=== PATIENT | male | born 1945 | race Caucasian/White ===

== ENCOUNTER → 2017-06-03 | Day surgery (SDC) | payer MEDICARE ==
[~2017-06-03] VITALS: Ht 170.2 cm; Wt 71.3 kg
[~2017-06-03] MED LIST: ACETAMINOPHEN 1000 MG/100 ML 100 ML IV ONE; ACETAMINOPHEN/HYDROcodone 325 MG/5 MG TAB PO PRN; ASPI-516 CHEW; ATOR20TA15 PO; BACITRACIN TOP OINT 15 GM TUBE ONE; BUPIVACAINE/EPINEPHRINE 0.25% 50 ML VIAL ONE; CHLORHEXIDINE GLUCONATE 2 % 1 PACK (2 CLOTHS) TOPICAL PRN; DO NOT ADM ANY ANTICOAGULANT DRUGS PRN; FISHCAP4 PO; HYDROmorphone HCL PF 1 MG/ML VIAL IV PUSH PRN; HYZA100T6 PO; KETOROLAC TROMETHAMINE 30 MG/ML (IVP) VIAL IVP PRN; LACTATED RINGER'S 1000 ML INJ 1,000 ML IV SCH; LACTATED RINGER'S 1000 ML IV PRN; MELO7.5T27 PO; METOPROLOL TARTRATE 25 MG TAB PO PRN; MIDAZOLAM HCL 2 MG/2 ML VIAL ONE; MORPHINE SULFATE 8 MG/ML INJ IV PUSH PRN; NALOXONE HCL 0.4 MG/ML AMP IV PUSH PRN; ONDANSETRON HCL 4 MG/2 ML VIAL IV PUSH PRN; OXYC1CAP PO; PCA - TOTAL MG MORPHINE DELIVERED PER SHIFT SCH; POVIDONE IODINE 5% (ANTISEPSIS KIT) 4 APPLICATIONS EACH NARE PRN; Post-op Orders (for Pharmacy) XX ONE; SODIUM CHLORID 0.9% 500 ML IV PRN; TYLETAB36 PO; VITA100T65 PO; ZOSTINJ SQ; [UNRECOGNIZED DRUG - CODE] PO; ceFAZolin 2 GM PREMIX 50 ML IV SCH; diphenhydrAMINE HCL 25 MG CAP PO PRN
[2017-06-03 13:14] LABS: AUTOMATED NEUTROPHIL # 5.1 TH/MM3 (1.8-7.7); BASOPHIL % 0.5 % (0.0-2.0); EOSINOPHIL # 0.1 TH/MM3 (0-0.4); EOSINOPHIL % 2.1 % (0.0-4.0); HEMATOCRIT 42.3 % (39.0-51.0); HEMOGLOBIN 14.7 GM/DL (13.0-17.0); LYMPHOCYTE # 1.3 TH/MM3 (1.0-4.8); MEAN CELL VOLUME 97.9 FL (80.0-100.0); MEAN CORPUSCULAR HGB CONC 34.7 % (32.0-36.0); MEAN PLATELET VOLUME 8.1 FL (7.0-11.0); MONO % 5.6 % (0.0-8.0); MONOCYTE # 0.4 TH/MM3 (0-0.9); NEUT % 72.8 % (16.0-70.0); PLATELET COUNT 215 TH/MM3 (150-450); RED BLOOD COUNT 4.32 MIL/MM3 (4.50-5.90); RED CELL DISTRIBUTION WIDTH 12.7 % (11.6-17.2); WHITE BLOOD COUNT 7.1 TH/MM3 (4.0-11.0)
[2017-06-03 13:28] LABS: ALT (GPT) 21 U/L (12-78)
[2017-06-03 13:31] LABS: ALKALINE PHOSPHATASE 72 U/L (45-117); TOTAL BILIRUBIN ADULT 0.4 MG/DL (0.2-1.0); TOTAL PROTEIN 6.4 GM/DL (6.4-8.2)
[2017-06-03 13:34] LABS: ALBUMIN 3.2 GM/DL (3.4-5.0); BLOOD UREA NITROGEN 16 MG/DL (7-18); CALCIUM 9.1 MG/DL (8.5-10.1); CHLORIDE 108 MEQ/L (98-107); CREATININE 0.62 MG/DL (0.60-1.30); GLOMERULAR FILTRATION RATE 128 ML/MIN (>89); GLUCOSE,RANDOM 92 MG/DL (74-106); SODIUM (NA) 140 MEQ/L (136-145)
[2017-06-03 13:38] LABS: AST (GOT) 27 U/L (15-37)
--- NOTE | 2017-06-03 14:00 | EKG ---
Date Performed: 06/03/2017 Time Performed: 11:58:04 PTAGE: 72 years EKG: Sinus rhythm NORMAL ECG NO PREVIOUS TRACING DOCTOR: Carlos Hamilton Interpretating Date/Time 06/03/2017 13:58:58
[2017-06-03 17:15] VITALS: BP 125/82; PULSE 75; RESP 18; TEMP 99.1; O2SAT 94
--- NOTE | 2017-06-04 09:10 | MP ---
cc: NATALY JIMENEZ M.D. DATE OF SURGERY 06/03/2017 PREOPERATIVE DIAGNOSES 1. Intermittent partial small-bowel obstruction with chronic right lower quadrant abdominal pain. 2. Umbilical hernia. 3. Status post laparoscopic appendectomy for perforated appendicitis. POSTOPERATIVE DIAGNOSES 1. Intermittent partial small-bowel obstruction with chronic right lower quadrant abdominal pain. 2. Status post laparoscopic appendectomy for perforated appendicitis. 3. Band-like adhesion right lower quadrant. 4. Incarcerated umbilical hernia with omental fat. PROCEDURE PERFORMED 1. Diagnostic laparoscopy. 2. Laparoscopic lysis of adhesion. 3. Primary umbilical hernia repair. SURGEON Nataly Jimenez MD ANESTHESIA General endotracheal. COMPLICATIONS None. INDICATION FOR PROCEDURE Mr. Palacios is a very pleasant 72-year-old gentleman who has had episodes of intermittent partial small-bowel obstruction. This was diagnosed by imaging and symptoms. He was seen and evaluated by his primary care physician. The patient reported intermittent umbilical and right lower quadrant abdominal pain. Because of his persistent and worsening symptoms, he was referred for surgical evaluation. The patient was seen and evaluated in the office. He was offered diagnostic laparoscopy, possible exploratory laparotomy to evaluate for adhesions in the right lower quadrant. The patient's surgical history is significant for undergoing a laparoscopic appendectomy for a perforated appendicitis many years ago at another facility. The patient was agreeable to proceed. All risks and benefits were reviewed with him in detail. DETAILS The patient was identified, brought to the operating room and placed supine on the operating room table. After adequate endotracheal anesthesia was achieved, the abdomen was prepped and draped in standard surgical fashion. Infraumbilical space was anesthetized with 0.25% Marcaine. Infraumbilical incision was made. Dissection was carried down in the subcutaneous tissue to the anterior abdominal wall fascia. Umbilical stalk and hernia were then carefully dissected out. Umbilical hernia sac was then opened a finger was placed in the peritoneal cavity. There were noted to be significant omental adhesions in the area of the umbilicus. Therefore a blunt 10-mm trocar was inserted. We did have some visualization of the abdominal wall in the left lower quadrant. Therefore we elected to place a 5-mm port in the left lower quadrant to obtain better visualization. 0.25% Marcaine was injected in the left lower quadrant. A 5-mm port was inserted in the left lower quadrant under direct vision using 0-degree laparoscopic in the umbilicus. Next, a second 5-mm trocar was placed in the lower midline, again under direct vision after anesthetizing the skin and subcutaneous tissue with 0.25% Marcaine. Once we did this, we removed the umbilical 10-mm trocar. Using finger dissection as well as blunt graspers, we pulled all the omentum out the umbilical defect. There were no significant bleeding points noted when we did this. Once the fascia was cleaned off circumferentially and the adhesions were completely cleared off, a 10-mm blunt port was then reinserted. A 10-mm, 30-degree camera was then inserted and attention was directed to the right lower quadrant. In the right lower quadrant there was noted to be a band-like adhesion going down from the abdominal wall, midline over to the right lower quadrant. This adhesion was photographed and then taken down with sharp dissection. Once we did this, attention was directed to the right lower quadrant where the cecum was identified. The cecal base was identified and eric from the previous laparoscopic appendectomy were photographed. The terminal ileum was then grasped. The terminal ileum was then followed in a retrograde manner. The ileum and jejunum were then run completely from the terminal ileum all the way to the ligament of Treitz using a [id number] technique with blunt bowel graspers. There were no interloop adhesions and no gross abnormalities. The only slight abnormality we did see was a thickening in the mid-jejunum which could have been a peristaltic wave. There was no mass noted and this was directly palpated. We then ran the bowel in an antegrade fashion from the ligament Treitz back down to the ileocecal valve and again no abnormalities were noted. Specifically there was no evidence of a Meckel's diverticulum or any interloop adhesions. Once we felt comfortable we had run the one entire bowel, attention was directed to the omentum which was then brought down and placed over the entire small bowel. The patient was noted to have a small right inguinal hernia. The gallbladder was also visualized and found to be of normal size and color. The abdomen was then desufflated and we removed the 10-mm port. The umbilical hernia sac was then excised using electrocautery Bovie. The abdominal wall fascia was then reapproximated with a [id number] 0 Vicryl x2. Once this was closed, the abdomen was reinsufflated using one of the 5-mm trocars. We directly visualized the umbilical hernia repair and there was no omentum or bowel noted to be in the repair. By direct palpation externally there was no evidence of a fascial defect. Again the small bowel and omentum were visualized. The omentum was placed over the entire small bowel to keep it off of the abdominal wall. The abdomen was then carefully desufflated. The umbilical stalk was then tacked down to the abdominal wall using a 4-0 Vicryl. The skin was then closed with a 4-0 Vicryl. The patient tolerated the procedure well, was awakened and brought to Recovery in stable condition. MD SONIA Donald/BREEZY /3:29 PM /8:45 AM
== END | disposition home or self-care (01) ==
LOC: HSDC 11:21
PROVIDERS: ATTEND Surgery Trauma Surgery
DX: K42.0 Umbilical hernia with obstruction, without gangrene (principal); K56.51 Intestinal adhesions [bands], with partial obstruction; R10.9 Unspecified abdominal pain; G89.29 Other chronic pain; I10 Essential (primary) hypertension
CPT/HCPCS: 00750; 49653; 80053; 85025; 93005; J0131; J2250; J3010; J7120

== ENCOUNTER 2017-06-09 07:54 | Inpatient (IN) | payer MEDICARE ==
[~2017-06-09] VITALS: Ht 170.2 cm; Wt 73.0 kg
[~2017-06-09 07:54] MED LIST changes: -ACETAMINOPHEN 1000 MG/100 ML 100 ML IV ONE; -ACETAMINOPHEN/HYDROcodone 325 MG/5 MG TAB PO PRN; -BACITRACIN TOP OINT 15 GM TUBE ONE; -BUPIVACAINE/EPINEPHRINE 0.25% 50 ML VIAL ONE; -CHLORHEXIDINE GLUCONATE 2 % 1 PACK (2 CLOTHS) TOPICAL PRN; -DO NOT ADM ANY ANTICOAGULANT DRUGS PRN; -HYDROmorphone HCL PF 1 MG/ML VIAL IV PUSH PRN; -KETOROLAC TROMETHAMINE 30 MG/ML (IVP) VIAL IVP PRN; -LACTATED RINGER'S 1000 ML INJ 1,000 ML IV SCH; -LACTATED RINGER'S 1000 ML IV PRN; -MELO7.5T27 PO; -METOPROLOL TARTRATE 25 MG TAB PO PRN; -MIDAZOLAM HCL 2 MG/2 ML VIAL ONE; -MORPHINE SULFATE 8 MG/ML INJ IV PUSH PRN; -NALOXONE HCL 0.4 MG/ML AMP IV PUSH PRN; -ONDANSETRON HCL 4 MG/2 ML VIAL IV PUSH PRN; -PCA - TOTAL MG MORPHINE DELIVERED PER SHIFT SCH; -POVIDONE IODINE 5% (ANTISEPSIS KIT) 4 APPLICATIONS EACH NARE PRN; -Post-op Orders (for Pharmacy) XX ONE; -SODIUM CHLORID 0.9% 500 ML IV PRN; -ZOSTINJ SQ; -ceFAZolin 2 GM PREMIX 50 ML IV SCH; -diphenhydrAMINE HCL 25 MG CAP PO PRN
[2017-06-09 08:01] VITALS: BP 158/90; PULSE 94; RESP 20; TEMP 98.3; O2SAT 97
[2017-06-09] MEDS ORDERED: SODIUM CHLOR 0.9% 1000 ML INJ 1,000 ML IV SCH (08:11)
[2017-06-09] MEDS ORDERED: ONDANSETRON HCL 4 MG/2 ML VIAL IVP ONE (08:15)
[2017-06-09] MEDS ORDERED: SODIUM CHLORIDE 0.9% FLUSH 10 ML FLUSH IV FLUSH PRN ×2 (08:15→11:00)
[2017-06-09] MEDS ORDERED: MORPHINE SULFATE 4 MG/ML INJ IV PUSH ONE (08:15)
--- NOTE | 2017-06-09 08:18 | PD ---
HPI Chief Complaint: GI Complaint Time Seen by Provider: 07:58 Travel History International Travel<30 days: No Contact w/Intl Traveler<30days: No Traveled to known affect area: No History of Present Illness HPI The patient is a 72-year-old male who presents to the emergency department via EMS for abdominal pain associated with nausea, vomiting, 2 episodes of hematemesis. The patient recently underwent surgery on June 03, 2017 by a surgeon, Dr. Satish Paredes. The patient underwent lysis of adhesion in the right lower quadrant and umbilical hernia repair. The patient was discharged home, however, he states he has had increasing abdominal pain, belching, nausea last several days. The patient's symptoms progressed yesterday. The patient did eat strawberries yesterday, then had an episode of nausea and vomiting with possible hematemesis that he initially attributed to strawberries. However, the patient had another episode of nausea and vomiting today with hematemesis described as bright red blood. He also complains of epigastric abdominal discomfort, periumbilical discomfort, and one bowel movement yesterday. He does note decreased appetite with generalized malaise. The pain is epigastric to periumbilical, dull, nonradiating, and 4/10. He denies any history of gastritis or peptic ulcer disease. He denies any bright red blood in the stool. He denies any fever. PFSH Past Medical History Cancer: Yes (BLADDER CA) Cardiovascular Problems: No High Cholesterol: Yes Diabetes: No Diminished Hearing: No Endocrine: No Genitourinary: No Hepatitis: No Hiatal Hernia: No Hypertension: Yes Immune Disorder: No Musculoskeletal: Yes (ARTHRITIS) Neurologic: No Psychiatric: No Reproductive: No Respiratory: No Thyroid Disease: No ?: Not Past Surgical History Abdominal Surgery: Yes (APPY) Body Medical Devices: NONE Cardiac Surgery: No Ear Surgery: No Endocrine Surgery: No Eye Surgery: No Genitourinary Surgery: Yes (BLADDER TUMOR REMOVED) Oral Surgery: Yes (PERIDONTAL SURGERY TO GUMS) Thoracic Surgery: No Other Surgery: Yes (HERNIA ) Social History Alcohol Use: Yes (WINE DAILY) Tobacco Use: No (E-CIG) Substance Use: No Allergies-Medications (Allergen,Severity, Reaction): Coded Allergies: No Known Allergies (Unverified Adverse Reaction, Unknown, 06/03/17) Reported Meds & Prescriptions Reported Meds & Active Scripts Active Oxycodone (Oxycodone HCl) 5 Mg Cap 5 Mg PO Q6H PRN Hyzaar (Losartan-Hydrochlorothiazide) 100-25 Mg Tab 1 Tab PO DAILY Atorvastatin (Atorvastatin Calcium) 20 Mg Tab 20 Mg PO HS Tylenol-Codeine #4 (Acetaminophen-Codeine) 300-60 mg Tab 1 Tab PO Q6HR PRN Reported Tyson-E Complete (S-Adenosylmethionine) 200 Mg Tab 200 Mg PO DAILY Vitamin E 100 Unit Tab 100 Units PO DAILY Fish Oil + D3 (Fish Oil-Cholecalciferol) 1,200-1,000 Mg-Unit Cap 1 Cap PO DAILY Aspirin 81 Mg Chew 81 Mg CHEW DAILY Review of Systems Except as stated in HPI: all other systems reviewed are Neg General / Constitutional: No: Fever Cardiovascular: No: Chest Pain or Discomfort Respiratory: No: Shortness of Breath Gastrointestinal: Positive: Nausea, Vomiting, Abdominal Pain, Hematemesis, No: Diarrhea Genitourinary: No: Dysuria Musculoskeletal: Positive: Weakness Physical Exam Narrative GENERAL: Awake, alert, pleasant 72-year-old male who appears his stated age and is in no acute respiratory distress. SKIN: Focused skin assessment warm/dry. HEAD: Atraumatic. Normocephalic. EYES: Pupils equal and round. No scleral icterus. No injection or drainage. ENT: No nasal bleeding or discharge. Slightly dry mucous membranes. No visible blood in the posterior oropharynx. NECK: Trachea midline. No JVD. CARDIOVASCULAR: Regular, tachycardic with a heart rate of 105. RESPIRATORY: No accessory muscle use. Clear to auscultation. Breath sounds equal bilaterally. GASTROINTESTINAL: Abdomen slightly distended, mild epigastric tenderness and. Umbilical tenderness. Dressing in place. Well-healed transverse epigastric scar. Rectal: No gross blood. Guaiac negative. MUSCULOSKELETAL: No obvious deformities. No clubbing. No cyanosis. No edema. NEUROLOGICAL: Awake and alert. No obvious cranial nerve deficits. Motor grossly within normal limits. Normal speech. PSYCHIATRIC: Appropriate mood and affect; insight and judgment normal. Data Data Last Documented VS Vital Signs Date Time Temp Pulse Resp B/P (MAP) Pulse Ox O2 Delivery O2 Flow Rate FiO2 06/09/17 09:14 14 06/09/17 08:48 79 161/70 (100) 99 Nasal Cannula 2.00 06/09/17 08:01 98.3 Orders Orders Complete Blood Count With Diff (06/09/17 08:11) Comprehensive Metabolic Panel (06/09/17 08:11) Lipase (06/09/17 08:11) Lactic Acid (06/09/17 08:11) Ct Abd/Pel W Iv Contrast(Rout) (06/09/17 08:11) Iv Access Insert/Monitor (06/09/17 08:11) Ecg Monitoring (06/09/17 08:11) Oximetry (06/09/17 08:11) Morphine Inj (Morphine Inj) (06/09/17 08:15) Ondansetron Inj (Zofran Inj) (06/09/17 08:15) Sodium Chlor 0.9% 1000 Ml Inj (Ns 1000 M (06/09/17 08:11) Sodium Chloride 0.9% Flush (Ns Flush) (06/09/17 08:15) Electrocardiogram (06/09/17 08:11) Creatine Kinase (Cpk) (06/09/17 08:11) Troponin I (06/09/17 08:11) Iohexol 350 Inj (Omnipaque 350 Inj) (06/09/17 09:52) Admit Order (Ed Use Only) (06/09/17 10:49) Consult General Surgery (06/09/17 ) Labs Laboratory Tests Test 06/09/17 08:40 White Blood Count 17.0 TH/MM3 Red Blood Count 4.79 MIL/MM3 Hemoglobin 16.1 GM/DL Hematocrit 45.9 % Mean Corpuscular Volume 95.8 FL Mean Corpuscular Hemoglobin 33.7 PG Mean Corpuscular Hemoglobin Concent 35.1 % Red Cell Distribution Width 12.7 % Platelet Count 270 TH/MM3 Mean Platelet Volume 8.4 FL Neutrophils (%) (Auto) 85.8 % Lymphocytes (%) (Auto) 8.1 % Monocytes (%) (Auto) 5.9 % Eosinophils (%) (Auto) 0.1 % Basophils (%) (Auto) 0.1 % Neutrophils # (Auto) 14.6 TH/MM3 Lymphocytes # (Auto) 1.4 TH/MM3 Monocytes # (Auto) 1.0 TH/MM3 Eosinophils # (Auto) 0.0 TH/MM3 Basophils # (Auto) 0.0 TH/MM3 CBC Comment DIFF FINAL Differential Comment Blood Urea Nitrogen 28 MG/DL Creatinine 0.99 MG/DL Random Glucose 134 MG/DL Total Protein 7.1 GM/DL Albumin 3.7 GM/DL Calcium Level 10.0 MG/DL Alkaline Phosphatase 81 U/L Aspartate Amino Transf (AST/SGOT) 24 U/L Alanine Aminotransferase (ALT/SGPT) 27 U/L Total Bilirubin 0.7 MG/DL Sodium Level 140 MEQ/L Potassium Level 3.9 MEQ/L Chloride Level 100 MEQ/L Carbon Dioxide Level 31.5 MEQ/L Anion Gap 9 MEQ/L Estimat Glomerular Filtration Rate 74 ML/MIN Lactic Acid Level 1.7 mmol/L Total Creatine Kinase 65 U/L Troponin I LESS THAN 0.02 NG/ML Lipase 104 U/L MDM Medical Decision Making Medical Screen Exam Complete: Yes Emergency Medical Condition: Yes Medical Record Reviewed: Yes Interpretation(s) EKG reveals normal sinus rhythm with a rate in 99. PVCs noted. Nonspecific ST- T wave changes. Laboratory Tests Test 06/09/17 08:40 White Blood Count 17.0 TH/MM3 Red Blood Count 4.79 MIL/MM3 Hemoglobin 16.1 GM/DL Hematocrit 45.9 % Mean Corpuscular Volume 95.8 FL Mean Corpuscular Hemoglobin 33.7 PG Mean Corpuscular Hemoglobin Concent 35.1 % Red Cell Distribution Width 12.7 % Platelet Count 270 TH/MM3 Mean Platelet Volume 8.4 FL Neutrophils (%) (Auto) 85.8 % Lymphocytes (%) (Auto) 8.1 % Monocytes (%) (Auto) 5.9 % Eosinophils (%) (Auto) 0.1 % Basophils (%) (Auto) 0.1 % Neutrophils # (Auto) 14.6 TH/MM3 Lymphocytes # (Auto) 1.4 TH/MM3 Monocytes # (Auto) 1.0 TH/MM3 Eosinophils # (Auto) 0.0 TH/MM3 Basophils # (Auto) 0.0 TH/MM3 CBC Comment DIFF FINAL Differential Comment Blood Urea Nitrogen 28 MG/DL Creatinine 0.99 MG/DL Random Glucose 134 MG/DL Total Protein 7.1 GM/DL Albumin 3.7 GM/DL Calcium Level 10.0 MG/DL Alkaline Phosphatase 81 U/L Aspartate Amino Transf (AST/SGOT) 24 U/L Alanine Aminotransferase (ALT/SGPT) 27 U/L Total Bilirubin 0.7 MG/DL Sodium Level 140 MEQ/L Potassium Level 3.9 MEQ/L Chloride Level 100 MEQ/L Carbon Dioxide Level 31.5 MEQ/L Anion Gap 9 MEQ/L Estimat Glomerular Filtration Rate 74 ML/MIN Lactic Acid Level 1.7 mmol/L Total Creatine Kinase 65 U/L Troponin I LESS THAN 0.02 NG/ML Lipase 104 U/L CT the abdomen and pelvis with contrast reveals fluid-filled dilated loops of small bowel with partial small bowel obstruction. There are several areas of focal wall thickening involving the small intestine suggesting enteritis. Differential includes infectious, inflammatory, or ischemic enteritis. Clinical correlation is recommended. Uncomplicated sigmoid diverticulosis. Enlarged prostate with central calcifications. Coronary artery calcifications. Small hiatal hernia. Right inguinal hernia containing only fluid. Degenerative changes and scoliosis of the lumbar spine. Tiny scattered subcentimeter renal cyst bilaterally. Differential Diagnosis Differential diagnosis includes peptic ulcer disease, gastritis, perforated ulcer, postoperative complication, intra-abdominal abscess, pancreatitis, inferior myocardial infarction, dehydration, electrolyte abnormality. Narrative Course IV was established, labs are drawn and sent, and the patient was placed on cardiac telemetry monitoring and continuous pulse oximetry monitoring. EKG was ordered and interpreted. I discussed the patient with Dr. Satish Paredes at 8:10 AM , he states he is currently out of town, however, his partner, Dr. Warren is covering. He does state that the patient's surgery was straightforward, most likely his pain and symptoms are from another etiology. However, he does state I can notify his partner, Dr. Warren, any pertinent findings. The patient's white count was elevated at 17.0. BUN is elevated at 28 with a creatinine 0.99 , could be prerenal azotemia from dehydration and/or upper GI bleed. CT reveals fluid filled dilated loops of small bowel with partial small bowel obstruction in several areas of focal wall thickening involving the small testing suggesting enteritis. The patient is afebrile, however, does have an elevated white count of 17.0. The patient's primary physician Is Keysha Griffith, therefore, the residents were paged for admission. A call was also placed to the on-call surgeon for Dr. Paredes, Dr. Warren, at 10:24 AM. I discussed the patient Dr. Warren at 10:27 AM who is aware of the patient and will evaluate him in the hospital. Physician Communication Physician Communication The patient's primary physician is Dr Wilfredo Chopra, therefore, the residents were paged at 10:24 AM. I discussed the patient with the residents who agreed with admission. Diagnosis Primary Impression: Partial small bowel obstruction Additional Impressions: Enteritis Dehydration Admitting Information Admitting Physician Requests: Admit Condition: Stable Bryant Gunter MD Jun 09, 2017 08:18
[2017-06-09 08:48] VITALS: BP 161/70; PULSE 79; RESP 14; O2SAT 99
[2017-06-09 09:03] LABS: AUTOMATED NEUTROPHIL # 14.6 TH/MM3 (1.8-7.7); BASOPHIL % 0.1 % (0.0-2.0); EOSINOPHIL % 0.1 % (0.0-4.0); HEMATOCRIT 45.9 % (39.0-51.0); HEMOGLOBIN 16.1 GM/DL (13.0-17.0); LYMPH % 8.1 % (9.0-44.0); LYMPHOCYTE # 1.4 TH/MM3 (1.0-4.8); MEAN CELL VOLUME 95.8 FL (80.0-100.0); MEAN CORPUSCULAR HEMOGLOBIN 33.7 PG (27.0-34.0); MEAN CORPUSCULAR HGB CONC 35.1 % (32.0-36.0); MEAN PLATELET VOLUME 8.4 FL (7.0-11.0); MONO % 5.9 % (0.0-8.0); NEUT % 85.8 % (16.0-70.0); PLATELET COUNT 270 TH/MM3 (150-450); RED BLOOD COUNT 4.79 MIL/MM3 (4.50-5.90); RED CELL DISTRIBUTION WIDTH 12.7 % (11.6-17.2)
[2017-06-09 09:21] LABS: ALBUMIN 3.7 GM/DL (3.4-5.0); ALT (GPT) 27 U/L (12-78); AST (GOT) 24 U/L (15-37); BICARBONATE 31.5 MEQ/L (21.0-32.0); BLOOD UREA NITROGEN 28 MG/DL (7-18); CHLORIDE 100 MEQ/L (98-107); CREATININE 0.99 MG/DL (0.60-1.30); GLOMERULAR FILTRATION RATE 74 ML/MIN (>89); GLUCOSE,RANDOM 134 MG/DL (74-106); SODIUM (NA) 140 MEQ/L (136-145)
[2017-06-09 09:24] LABS: ALKALINE PHOSPHATASE 81 U/L (45-117); TOTAL BILIRUBIN ADULT 0.7 MG/DL (0.2-1.0); TOTAL PROTEIN 7.1 GM/DL (6.4-8.2); TROPONIN I LESS THAN 0.02 NG/ML (0.02-0.05)
[2017-06-09] MEDS ORDERED: IOHEXOL 350 MG/ML 10 ML VIAL (for RAD DIAG) IVCONTRAST ONE (09:52)
--- NOTE | 2017-06-09 10:22 | RADRPT ---
EXAM DATE/TIME: 06/09/2017 09:46 [facility] COMPARISON: No previous studies available for comparison. INDICATIONS : Recent umbilical surgery. Abdominal pain with bloody emesis. IV CONTRAST: 93 cc Omnipaque 350 (iohexol) IV ORAL CONTRAST: No oral contrast ingested. RADIATION DOSE: 7.43 CTDIvol (mGy) MEDICAL HISTORY : Hypertension. Carcinoma, bladder. SURGICAL HISTORY : Appendectomy. Hernia surgery ENCOUNTER: Initial ACUITY: 2 days PAIN SCALE: 5/10 LOCATION: Bilateral abdomen TECHNIQUE: Volumetric scanning of the abdomen and pelvis was performed. Using automated exposure control and ad justment of the mA and/or kV according to patient size, radiation dose was kept as low as reasonably achievable to obtain optimal diagnostic quality images. DICOM format image data is available electro nically for review and comparison. FINDINGS: LOWER LUNGS: The visualized lower lungs are clear. Small hiatal hernia is noted. Coronary artery calcifications ar e noted. LIVER: Homogeneous density without lesion. There is no dilation of the biliary tree. No calcified gallston es. SPLEEN: Normal size without lesion. PANCREAS: Within normal limits. KIDNEYS: Normal in size and shape. There is no mass, stone or hydronephrosis. Tiny scattered subcentimeter cy sts are noted in both kidneys. ADRENAL GLANDS: Within normal limits. VASCULAR: There is no aortic aneurysm. BOWEL/MESENTERY: There is evidence of fluid-filled dilated loops of small bowel with partial small bowel obstruction. There are several areas of focal wall thickening involving the small intestine suggesting enteritis. Differential includes infectious, inflammatory or ischemic enteritis. Clinical correlation is recomme nded. Uncomplicated sigmoid diverticulosis is noted. No acute diverticulitis is noted. ABDOMINAL WALL: Within normal limits. RETROPERITONEUM: There is no lymphadenopathy. BLADDER: No wall thickening or mass. REPRODUCTIVE: The prostate gland is enlarged and contains central calcifications the INGUINAL: There is a tiny right inguinal hernia containing only fluid. No herniated bowel loop is noted MUSCULOSKELETAL: Degenerative changes and scoliosis of the lumbar spine are noted. CONCLUSION: 1. Fluid-filled dilated loops of small bowel with partial small bowel obstruction. There are several areas of focal wall thickening involving the small intestine suggesting enteritis. Differential inclu mohinder infectious, inflammatory or ischemic enteritis. Clinical correlation is recommended. 2. Uncomplicated sigmoid diverticulosis. 3. Enlarged prostate with central calcifications. 4. Coronary artery calcifications. 5. Small hiatal hernia. 6. Right inguinal hernia containing only fluid. 7. Degenerative changes and scoliosis of the lumbar spine. 8. Tiny scattered subcentimeter renal cysts bilaterally. Cash Kemp MD on June 09, 2017 at 10:10 Board Certified Radiologist. This report was verified electronically.
[2017-06-09] MEDS: SODIUM CHLORIDE 0.9% FLUSH 10 ML FLUSH IV FLUSH SCH ×2 (11:00→21:02)
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
[2017-06-09] MEDS: SODIUM CHLOR 0.9% 1000 ML INJ 1,000 ML IV SCH ×2 (11:49→21:42)
[2017-06-09 12:00] VITALS: BP 109/58; PULSE 70; RESP 20; O2SAT 96
[2017-06-09] MEDS ORDERED: ONDANSETRON HCL 4 MG/2 ML VIAL IVP PRN (12:15)
[2017-06-09] MEDS ORDERED: ACETAMINOPHEN 325 MG TAB PO PRN ×2 (12:15)
[2017-06-09] MEDS ORDERED: NALOXONE HCL 0.4 MG/ML AMP IV PUSH PRN (12:15)
--- NOTE | 2017-06-09 13:40 | PD.CONS ---
HPI History of Present Illness This is a 72 year old M with medical history significant for HTN, hyperlipidemia , bladder cancer. He is S/P lysis of adhesions in RLQ and umbilical hernia repair done by Dr. Paredes on Jun 03 of this year. Pt reports mild relief of pain after the surgery, however, states that the relief did not last long and now the [facility] is no longer providing any relief of the pain. Pt presents to the ER today with complaints of abdominal pain and vomiting x 2 episodes. First episode was last night and he reports some right red substance in the emesis. Vomited again today and noticed what looked more like blood. Of note, did have strawberries and pizza sauce for dinner last night. Abdominal pain is located mostly in his upper abdomen. States it associated with belching. Has had episodes of belching every 5-10 seconds that lasts ten minutes, has been happening since his surgery. States he thinks he has been losing weight but related it to his decreased appetite secondary to pain. Last BM was yesterday, states smaller than normal but has not been eating. Denies BRB in stool or melena. Denies flatus. ETOH, half a glass of wine daily. Denies smoking, NSAID use. Last colonoscopy in 2009 and states normal exam, [place]. Denies ever having EGD. CT abdomen and pelvis W IV contrast noted -- > Fluid filled dilated loops of small bowel with partial small bowel obstruction. There are several areas of focal wall thickening involving the small intestine suggesting enteritis. Differential includes infectious, inflammatory or ischemic enteritis. Uncomplicated sigmoid diverticulosis. Small hiatal hernia. Labs do reveal leukocytosis. H/H stable at this time 16.1 /45.9. Family history unknown because pt is adopted. (Lilian Rivera) PFSH Past Medical History Bladder cancer S/P BCG x 6 Squamous cell carcinoma on scalp HTN Hyperlipidemia Achilles tendinitis Past Surgical History Umbilical hernia repair Lysis of adhesions RLQ Bladder surgery Appendectomy Removal of squamous cell carcinoma from scalp (Lilian Rivera) Coded Allergies: No Known Allergies (Unverified Adverse Reaction, Unknown, 06/03/17) Family History Pt is adopted, family history unknown Social History ETOH- 1/2 glass of wine daily (Lilian Rivera) Review of Systems Gastrointestinal: COMPLAINS OF: Abdominal pain, Constipation, Nausea, Vomiting , Hematemesis, DENIES: Black stools, Bloody stools, Diarrhea, Difficulty Swallowing, Swelling of Abdomen, Heartburn (Lilian Rivera) GI Exam Vitals I&O Vital Signs Date Time Temp Pulse Resp B/P (MAP) Pulse Ox O2 Delivery O2 Flow Rate FiO2 06/09/17 12:00 70 20 109/58 (75) 96 Room Air 06/09/17 09:14 14 06/09/17 08:48 79 14 161/70 (100) 99 Nasal Cannula 2.00 06/09/17 08:01 98.3 94 20 158/90 (112) 97 I/O 06/08/17 06/08/17 06/08/17 06/09/17 06/09/17 06/09/17 07:00 15:00 23:00 07:00 15:00 23:00 Intake Total 1000 ml Balance 1000 ml Intake IV Total 1000 ml Imaging Last Impressions Abdomen/Pelvis CT 06/09/17 0811 Signed Impressions: Service Date/Time: Friday, June 09, 2017 09:46 - CONCLUSION: 1. Fluid-filled dilated loops of small bowel with partial small bowel obstruction. There are several areas of focal wall thickening involving the small intestine suggesting enteritis. Differential includes infectious, inflammatory or ischemic enteritis. Clinical correlation is recommended. 2. Uncomplicated sigmoid diverticulosis. 3. Enlarged prostate with central calcifications. 4. Coronary artery calcifications. 5. Small hiatal hernia. 6. Right inguinal hernia containing only fluid. 7. Degenerative changes and scoliosis of the lumbar spine. 8. Tiny scattered subcentimeter renal cysts bilaterally. Cash Kmep MD Laboratory Test 06/09/17 08:40 White Blood Count 17.0 TH/MM3 Red Blood Count 4.79 MIL/MM3 Hemoglobin 16.1 GM/DL Hematocrit 45.9 % Mean Corpuscular Volume 95.8 FL Mean Corpuscular Hemoglobin 33.7 PG Mean Corpuscular Hemoglobin Concent 35.1 % Red Cell Distribution Width 12.7 % Platelet Count 270 TH/MM3 Mean Platelet Volume 8.4 FL Neutrophils (%) (Auto) 85.8 % Lymphocytes (%) (Auto) 8.1 % Monocytes (%) (Auto) 5.9 % Eosinophils (%) (Auto) 0.1 % Basophils (%) (Auto) 0.1 % Neutrophils # (Auto) 14.6 TH/MM3 Lymphocytes # (Auto) 1.4 TH/MM3 Monocytes # (Auto) 1.0 TH/MM3 Eosinophils # (Auto) 0.0 TH/MM3 Basophils # (Auto) 0.0 TH/MM3 CBC Comment DIFF FINAL Differential Comment Blood Urea Nitrogen 28 MG/DL Creatinine 0.99 MG/DL Random Glucose 134 MG/DL Total Protein 7.1 GM/DL Albumin 3.7 GM/DL Calcium Level 10.0 MG/DL Alkaline Phosphatase 81 U/L Aspartate Amino Transf (AST/SGOT) 24 U/L Alanine Aminotransferase (ALT/SGPT) 27 U/L Total Bilirubin 0.7 MG/DL Sodium Level 140 MEQ/L Potassium Level 3.9 MEQ/L Chloride Level 100 MEQ/L Carbon Dioxide Level 31.5 MEQ/L Anion Gap 9 MEQ/L Estimat Glomerular Filtration Rate 74 ML/MIN Lactic Acid Level 1.7 mmol/L Total Creatine Kinase 65 U/L Troponin I LESS THAN 0.02 NG/ML Lipase 104 U/L Physical Examination HEENT: Normocephalic; atraumatic; no jaundice CHEST: Even/unlabored CARDIAC: RRR ABDOMEN: Distended, soft, diffusely TTP, bowel sounds active EXTREMITIES: No clubbing, cyanosis, or edema.. partial amputation with loss of 2 fingers on left hand. SKIN: Normal; no rash; no jaundice. GLASSWARE VERIFIER: No focal deficits; alert and oriented times three. (Lilian Rivera) Assessment and Plan Plan Assessment: - Hematemesis- 2 episodes, one last night one again today, preceded by nausea. Pt is unsure whether the bright red noticed in his emesis is blood, reports having pizza sauce and strawberries yesterday for dinner. Denies ever having EGD. Risk factors include daily ETOH, 1/2 glass of wine a night. Denies blood thinners, smoking, NSAIDs. Protonix IV BID. H/H stable 16.1/45.1 - Partial small bowel obstruction- Last BM was yesterday, states smaller than normal but has not been eating much. Denies flatus. He is S/P lysis of adhesions in RLQ and umbilical hernia repair on Jun [address] Paredes. GS has been consulted, pending report. - Enteritis- suggested on CT Abdomen w pelvis as noted below- associated leukocytosis. Differentials include inflammatory, infectious, or ischemic enteritis. Zosyn per attending. CT abdomen and pelvis W IV contrast noted --> Fluid filled dilated loops of small bowel with partial small bowel obstruction. There are several areas of focal wall thickening involving the small intestine suggesting enteritis. Differential includes infectious, inflammatory or ischemic enteritis. Uncomplicated sigmoid diverticulosis. Small hiatal hernia. Plan: EGD tomorrow Keep pt NPO NGT to LIWS if continued nausea or vomiting GS consult pending Continue Zosyn Possible CTA to rule out ischemic enteritis depending on clinical course and results of above Monitor H/H Notify GI of active bleeding Continue Protonix Supportive care Pt has been seen and examined by myself and Dr. Saab and this note is written on her behalf (Lilian Rivera) Physician Comments seen, examined agree with above (Anny Saab MD) Lilian Rivera Jun 09, 2017 13:40 Anny Saab MD Jun 09, 2017 19:12
[2017-06-09] MEDS: PIPERACIL-TAZO 4.5 GM PREMIX 100 ML IV SCH ×2 (14:08→21:42)
[2017-06-09] MEDS: MORPHINE SULFATE 2 MG/ML INJ IV PUSH PRN ×3 (14:08→22:45)
[2017-06-09] MEDS: PANTOPRAZOLE SODIUM 40 MG VIAL IV PUSH SCH ×2 (14:08→21:01)
[2017-06-09] MEDS ORDERED: RESP: ALBUTEROL 2.5 MG/3 ML NEB (PRN) NEB (14:30)
[2017-06-09] MEDS ORDERED: cloNIDine HCL 0.1 MG TAB PO PRN (14:30)
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
--- NOTE | 2017-06-09 15:50 | EKG ---
Date Performed: 06/09/2017 Time Performed: 08:09:18 PTAGE: 72 years EKG: Sinus rhythm WITH FREQUENT VENTRICULAR PREMATURE COMPLEXES NONSPECIFIC ST & T-WAVE ABNORMALITY ABNORMAL RHYTHM EC G Since the prior tracing, there has been no significant change PREVIOUS TRACING : 06/03/2017 11.58 DOCTOR: Sherry Real Interpretating Date/Time 06/09/2017 15:49:40
[2017-06-09 16:31] VITALS: BP 140/62; PULSE 84; RESP 20; TEMP 98.4; O2SAT 96
[2017-06-09 16:38] LABS: HEMATOCRIT 39.1 % (39.0-51.0)
[2017-06-09 20:34] VITALS: BP 117/59; PULSE 77; RESP 19; TEMP 97.8; O2SAT 95
[2017-06-09] MEDS: ATORVASTATIN 20 MG TAB PO SCH (21:01)
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
[2017-06-10 00:44] VITALS: BP 115/53; PULSE 70; RESP 20; TEMP 98.2; O2SAT 96
[2017-06-10 01:03] LABS: HEMATOCRIT 36.6 % (39.0-51.0); HEMOGLOBIN 12.9 GM/DL (13.0-17.0)
[2017-06-10] MEDS: PIPERACIL-TAZO 4.5 GM PREMIX 100 ML IV SCH ×4 (03:00→20:34)
[2017-06-10 03:40] VITALS: BP 128/78; PULSE 69; RESP 20; TEMP 98.7; O2SAT 98
[2017-06-10 04:26] LABS: BASOPHIL % 0.6 % (0.0-2.0); EOSINOPHIL # 0.3 TH/MM3 (0-0.4); EOSINOPHIL % 3.5 % (0.0-4.0); HEMATOCRIT 35.9 % (39.0-51.0); HEMOGLOBIN 12.7 GM/DL (13.0-17.0); LYMPH % 23.3 % (9.0-44.0); LYMPHOCYTE # 1.8 TH/MM3 (1.0-4.8); MEAN CELL VOLUME 96.4 FL (80.0-100.0); MEAN CORPUSCULAR HGB CONC 35.3 % (32.0-36.0); MEAN PLATELET VOLUME 8.1 FL (7.0-11.0); MONO % 6.8 % (0.0-8.0); MONOCYTE # 0.5 TH/MM3 (0-0.9); NEUT % 65.8 % (16.0-70.0); PLATELET COUNT 166 TH/MM3 (150-450); RED BLOOD COUNT 3.72 MIL/MM3 (4.50-5.90); RED CELL DISTRIBUTION WIDTH 12.6 % (11.6-17.2); WHITE BLOOD COUNT 7.6 TH/MM3 (4.0-11.0)
[2017-06-10 05:15] LABS: ALBUMIN 2.6 GM/DL (3.4-5.0); ALKALINE PHOSPHATASE 60 U/L (45-117); ALT (GPT) 16 U/L (12-78); AST (GOT) 15 U/L (15-37); BICARBONATE 23.9 MEQ/L (21.0-32.0); BLOOD UREA NITROGEN 18 MG/DL (7-18); CALCIUM 7.8 MG/DL (8.5-10.1); CHLORIDE 110 MEQ/L (98-107); CREATININE 0.74 MG/DL (0.60-1.30); GLOMERULAR FILTRATION RATE 104 ML/MIN (>89); GLUCOSE,RANDOM 76 MG/DL (74-106); SODIUM (NA) 140 MEQ/L (136-145); TOTAL BILIRUBIN ADULT 0.7 MG/DL (0.2-1.0)
[2017-06-10] MEDS ORDERED: LACTATED RINGER'S 1000 ML IV PRN (06:15)
[2017-06-10] MEDS ORDERED: METOPROLOL TARTRATE 25 MG TAB PO PRN (06:15)
[2017-06-10] MEDS ORDERED: SODIUM CHLORID 0.9% 500 ML IV PRN (06:15)
[2017-06-10] MEDS ORDERED: POVIDONE IODINE 5% (ANTISEPSIS KIT) 4 APPLICATIONS EACH NARE PRN (06:15)
[2017-06-10] MEDS ORDERED: CHLORHEXIDINE GLUCONATE 2 % 1 PACK (2 CLOTHS) TOPICAL PRN (06:15)
[2017-06-10 08:10] VITALS: BP 119/62; PULSE 78; RESP 20; TEMP 97.9; O2SAT 96
[2017-06-10] MEDS: HYDROCHLOROTHIAZIDE 25 MG TAB PO SCH (08:15)
[2017-06-10] MEDS: PANTOPRAZOLE SODIUM 40 MG VIAL IV PUSH SCH ×2 (08:16→20:35)
[2017-06-10] MEDS: LOSARTAN 50 MG TAB PO SCH (08:16)
[2017-06-10] MEDS: SODIUM CHLORIDE 0.9% FLUSH 10 ML FLUSH IV FLUSH SCH ×2 (08:16→20:35)
[2017-06-10] MEDS: VITAMIN E 400 UNIT CAP PO SCH (08:17)
[2017-06-10] MEDS: MORPHINE SULFATE 2 MG/ML INJ IV PUSH PRN ×4 (08:18→20:35)
[2017-06-10] MEDS: SODIUM CHLOR 0.9% 1000 ML INJ 1,000 ML IV SCH ×2 (08:45→20:36)
[2017-06-10] MEDS ORDERED: NON-FORMULARY DRUG (Fish Oil-Cholecalciferol (Fish Oil + D3) 1 CAP) PO SCH (09:00)
[2017-06-10] MEDS ORDERED: S ADENOSYLMETHIONINE PO SCH (09:00)
[2017-06-10] MEDS ORDERED: NON-FORMULARY DRUG (Losartan-Hydrochlorothiazide (Hyzaar) 1 TAB) PO SCH (09:00)
[2017-06-10 10:08] LABS: HEMOGLOBIN 12.9 GM/DL (13.0-17.0)
[2017-06-10 11:38] VITALS: BP 122/56; PULSE 80; RESP 20; TEMP 98.2; O2SAT 98
[2017-06-10] MEDS ORDERED: LIDOCAINE HCL 1% PF 5 ML SYRINGE OTHER ONE (12:00)
[2017-06-10] MEDS ORDERED: PROPOFOL 200 MG/20 ML AMP IV ONE (12:00)
--- NOTE | 2017-06-10 12:19 | HHI.FPPN ---
Subjective Remarks Patient seen and examined this morning. No acute events overnight. Patient is upset this morning as he has not been taking down for his upper endoscopy. Patient states that he is 85% better and would like to return home. However, his improvement is likely due to bowel rest and endorses having 1 bowel movement at this time. He has no other complaints and denies any new fevers, chills, SOB, chest pain, or calf tenderness. (Luis Lanza MD R2) Objective Vitals Vital Signs Date Time Temp Pulse Resp B/P (MAP) Pulse Ox O2 Delivery O2 Flow Rate FiO2 06/10/17 11:38 98.2 80 20 122/56 (78) 98 06/10/17 08:10 97.9 78 20 119/62 (81) 96 06/10/17 03:40 98.7 69 20 128/78 (95) 98 06/10/17 00:44 98.2 70 20 115/53 (73) 96 06/09/17 20:34 97.8 77 19 117/59 (78) 95 06/09/17 16:31 98.4 84 20 140/62 (88) 96 06/09/17 14:40 06/09/17 14:30 17 I/O 06/09/17 06/09/17 06/09/17 06/10/17 06/10/17 06/10/17 07:00 15:00 23:00 07:00 15:00 23:00 Intake Total 1000 ml 500 ml Balance 1000 ml 500 ml Intake Oral 500 ml IV Total 1000 ml # Voids 1 0 # Bowel Movements 1 0 (Luis Lanza MD R2) Result Diagram: 06/10/17 0941 06/10/17 0350 Objective Remarks GENERAL: Well-nourished, well-developed male lying in bed in no acute distress. SKIN: Warm and dry. No rash. HEENT: Atraumatic, normocephalic with EOMI. Mucous membranes moist. No rhinorrhea. No visible LAD or JVD appreciated. CARDIOVASCULAR: Regular rate and rhythm without obvious murmurs, gallops, or rubs. RESPIRATORY: Clear to auscultation bilaterally with no crackles, wheezes, or rhonchi. No increased work of breathing. GASTROINTESTINAL: Abdomen soft, nondistended with hypoactive bowel sounds in all 4 quadrants. Patient mildly tender to palpation diffusely without rebound or guarding, improved from prior exam. Negative Guthrie's signs with positive guarding. No rebound tenderness. Multiple port incisions CDI with what appears to be Dermabond on the incision. 4x4 gauze covered with Tegaderm over the periumbilical area, CDI. MUSCULOSKELETAL: No cyanosis or edema. NEURO/PSYCH: Afocal. Awake, alert, and oriented x3. Normal speech and judgement. (Luis Lanza MD R2) A/P Assessment and Plan 72-year-old male presented to the emergency department with partial small bowel obstruction and enteritis associated with hematemesis Discharge Planning Pending EGD with tolerating diet. (Luis Lanza MD R2) Attending Attestation Patient seen and examined during rounds this morning with resident physicians The patient case and updates were discussed with the resident physicians during rounds I have read the above note and agree with the physical exam and assessment/plan as discussed with me I was involved in all medical decision making for this patient Brandon Patel MD (Brandon Patel MD) Problem List: (1) Partial small bowel obstruction ICD Codes: K56.600 - Partial intestinal obstruction, unspecified as to cause Status: Acute Plan: -CT with fluid-filled dilated loops of small bowel with partial small bowel obstruction -Lipase 104 -Patient to be nothing by mouth, will consider NG tube with continued nausea/ vomiting -NS at 112 ml/hr -Pain control: -Morphine 4 mg every 3 hours as needed for pain 6-10 -Morphine 2 mg every 3 hours as needed for pain 3-5 -Tylenol as needed every 6 hours -Patient to be NPO before procedure -Zofran when necessary for nausea/vomiting -General surgery consult as patient is postop from exploratory laparotomy and umbilical hernia repair, pressure recommendations -GI consulted as below (2) Hematemesis ICD Codes: K92.0 - Hematemesis Status: Acute Plan: Patient with 2 episodes of hematemesis per report -H/H stable trending Q8H -Transfuse for hemoglobin less than 7 as he has no coronary artery disease -BUN 28, Cr 0.99, ratio consistent with possible GI bleed -Protonix twice a day -GI consulted -EGD today (3) Enterocolitis ICD Codes: K52.9 - Noninfective gastroenteritis and colitis, unspecified Status: Acute Plan: Abdominal CT shows focal wall thickening involving the small intestine suggesting enterocolitis -WBC: 17 with 85.8% neutrophils -Lactic acid 1.7 -Blood cultures pending -Patient started on Zosyn for antibacterial coverage (4) Postoperative pain ICD Codes: G89.18 - Other acute postprocedural pain Status: Acute Plan: -Patient with postoperative abdominal pain from laparoscopy for lysis of adhesions and umbilical hernia repair -Morphine as needed for for pain -General surgery consulted as above (5) Hypertension ICD Codes: I10 - Essential (primary) hypertension Status: Chronic Plan: -Continue home losartan-HCTZ -Home aspirin held (6) Hyperlipidemia ICD Codes: E78.5 - Hyperlipidemia, unspecified Status: Chronic Plan: -Continue home statin (7) Nutrition, metabolism, and development symptoms ICD Codes: R63.8 - Other symptoms and signs concerning food and fluid intake Status: Acute Plan: -Fluids: Normal saline at maintenance (112 mL/h) -Diet: Nothing by mouth for EGD in a.m. -Electrolytes: Within normal limits, continue to monitor -Prophylaxis: Albuterol when necessary for shortness of breath, Protonix for GERD, clonidine when necessary for blood pressure greater than 180/110, hydroxyzine when necessary for insomnia, Zofran when necessary for nausea, incentive spirometry, Tylenol as needed for fever (8) Medical contraindication to deep vein thrombosis (DVT) prophylaxis ICD Codes: Z53.09 - Procedure and treatment not carried out because of other contraindication Status: Acute Plan: -Medical DVT prophylaxis held due to possible upper GI bleed -SCDs (Luis Lanza MD R2) Problem Qualifiers (1) Hematemesis: Qualified Codes: K92.0 - Hematemesis Luis Lanza MD R2 Jun 10, 2017 12:19 Brandon Patel MD Jun 10, 2017 16:50
--- NOTE | 2017-06-10 12:24 | HHI.PR ---
cc: Spencer Lacy MD Subjective Subjective Notes DAILY PROGRESS NOTE FOR SURGICAL ATTENDING, DR. SPENCER LACY Resting in bed Reports abdominal pain is better today Going for EGD today Objective Vitals/I&O Vital Signs Date Time Temp Pulse Resp B/P (MAP) Pulse Ox O2 Delivery O2 Flow Rate FiO2 06/10/17 11:38 98.2 80 20 122/56 (78) 98 06/09/17 12:00 Room Air 06/09/17 08:48 2.00 Labs Laboratory Tests Test 06/09/17 16:20 06/10/17 00:29 06/10/17 03:50 06/10/17 09:41 Hemoglobin 14.0 12.9 12.7 12.9 Hematocrit 39.1 36.6 35.9 37.0 White Blood Count 7.6 Red Blood Count 3.72 Mean Corpuscular Volume 96.4 Mean Corpuscular Hemoglobin 34.0 Mean Corpuscular Hemoglobin Concent 35.3 Red Cell Distribution Width 12.6 Platelet Count 166 Mean Platelet Volume 8.1 Neutrophils (%) (Auto) 65.8 Lymphocytes (%) (Auto) 23.3 Monocytes (%) (Auto) 6.8 Eosinophils (%) (Auto) 3.5 Basophils (%) (Auto) 0.6 Neutrophils # (Auto) 5.0 Lymphocytes # (Auto) 1.8 Monocytes # (Auto) 0.5 Eosinophils # (Auto) 0.3 Basophils # (Auto) 0.0 CBC Comment DIFF FINAL Differential Comment Blood Urea Nitrogen 18 Creatinine 0.74 Random Glucose 76 Total Protein 5.0 Albumin 2.6 Calcium Level 7.8 Alkaline Phosphatase 60 Aspartate Amino Transf (AST/SGOT) 15 Alanine Aminotransferase (ALT/SGPT) 16 Total Bilirubin 0.7 Sodium Level 140 Potassium Level 3.4 Chloride Level 110 Carbon Dioxide Level 23.9 Anion Gap 6 Estimat Glomerular Filtration Rate 104 Date/Time Source Procedure Growth Status 06/09/17 13:31 Blood Peripheral Aerobic Blood Culture - Preliminary NO GROWTH IN 1 DAY Resulted 06/09/17 13:31 Blood Peripheral Anaerobic Blood Culture - Preliminary NO GROWTH IN 1 DAY Resulted Radiology Last Impressions Abdomen/Pelvis CT 06/09/17 0811 Signed Impressions: Service Date/Time: Friday, June 09, 2017 09:46 - CONCLUSION: 1. Fluid-filled dilated loops of small bowel with partial small bowel obstruction. There are several areas of focal wall thickening involving the small intestine suggesting enteritis. Differential includes infectious, inflammatory or ischemic enteritis. Clinical correlation is recommended. 2. Uncomplicated sigmoid diverticulosis. 3. Enlarged prostate with central calcifications. 4. Coronary artery calcifications. 5. Small hiatal hernia. 6. Right inguinal hernia containing only fluid. 7. Degenerative changes and scoliosis of the lumbar spine. 8. Tiny scattered subcentimeter renal cysts bilaterally. Cash Kemp MD Cardiovascular: Regular Lungs: Clear Abdomen: Other (lap sites c/d/i; steri strips in place; abdomen soft non tender ) Extremities: No edema A/P Assessment and Plan 72 year old male s/p outpatient dx lap; admitted for UGI bleeding -No further UGI bleeding -NPO for procedure -Diet as tolerated per GI -No acute surgical issues at this time Attending Statement NOTE FOR SURGICAL ATTENDING, DR. SPENCER LACY EGD results reviewed gastritis CTA negative Continue to her current management Await GI workup I agree with above assessment and plan. The exam, history, and the medical decision-making described in the above note were completed with the assistance of the mid-level provider. I reviewed and agree with the findings presented. I attest that I had a egci-vi-veug encounter with the patient on the same day, and personally performed and documented my assessment and findings in the medical record. The following services were provided during this hospital visit: Chart data review, vital sign assessments/reviewing monitor data Review of consultations notes if present. Medication orders/review and/or management Ordering and/or reviewing lab tests Ordering and/or interpreting/reviewing x-rays and/or diagnostic studies Care of the patient and discussion of the patient with the care team Documentation time To help prompt me to consider important information that might be impacting today's encounter and assessment, information from prior notes written by myself or my colleagues may have been "brought forward/copy and pasted" into today's note. Erica,Norma B. HYDRAULIC DREDGE OPERATOR Jun 10, 2017 12:24 Spencer Lacy MD Jun 10, 2017 23:13
--- NOTE | 2017-06-10 14:53 | GIPROC ---
[facility] [address] [facility]. [facility], [id number] EGD PROCEDURE REPORT EXAM DATE: 06/10/2017 PATIENT NAME: Satish Palacios MR #: [id number] BIRTHDATE: 1945 ATTENDING: Anny Saab MD ORDER #: [id number] WOOD TILE INSTALLATION HELPER: Aldo Gaytan and Corin Abad STATUS: inpatient INDICATIONS: The patient is a 72 yr old male here for an EGD due to nausea, vomiting, gi bleeding abnormal ct PROCEDURE PERFORMED: EGD w/ biopsy MEDICATIONS: None and Per Anesthesia. TOPICAL ANESTHETIC: none CONSENT: The patient understands the risks and benefits of the procedure and understands that these risks include, but are not limited to: sedation, allergic reaction, infection, perforation and/or bleeding. Alternative means of evaluation and treatment include, among others: physical exam, x-rays, and/or surgical intervention. The patient elects to proceed with this endoscopic procedure. medical equipment was checked for proper function. Hand hygiene and appropriate measures for infection prevention was taken. After the risks, benefits and alternatives of the procedure were thoroughly explained, Informed consent was verified, confirmed and timeout was successfully executed by the treatment team. The patient was anesthetized with topical anesthesia and the Pentax [id number] endoscope was introduced through the mouth and advanced to the second portion of the duodenum. Retroflexed views revealed a hiatal hernia The gastroscope was then slowly withdrawn and removed. Esophagitis grade b-biopsy gastritis antrum-biopsy duodenum normal-biopsy. ADVERSE EVENTS: There were no complications. IMPRESSIONS: 1. Esophagitis grade b-biopsy gastritis antrum-biopsy duodenum normal-biopsy 2. Retroflexed views revealed a hiatal hernia RECOMMENDATIONS: 1. Await biopsy results. Biopsy results will not be ready for 7-10 days. If you don't hear from us in two weeks, call our office for biopsy results. 2. Continue PPI 3. Avoid NSAIDS 4. Clear liquid diet CTA if negative consider ct enterography/enteroscopy PATIENT CONDITION: stable DISPOSITION: Inpatient REPEAT EXAM: Return 1 year EGD Anny Saab MD eSigned: Anny Saab MD 06/10/2017 2:52 PM cc: PATIENT NAME: Satish Palacios MR#: [id number]
[2017-06-10 16:50] VITALS: BP 142/64; PULSE 64; RESP 20; TEMP 98.1; O2SAT 99
[2017-06-10 20:00] VITALS: BP 163/71; PULSE 78; RESP 18; TEMP 98.4; O2SAT 99
[2017-06-10 20:16] LABS: HEMATOCRIT 38.8 % (39.0-51.0); HEMOGLOBIN 13.4 GM/DL (13.0-17.0)
[2017-06-10] MEDS ORDERED: IOHEXOL 350 MG/ML 10 ML VIAL (for RAD DIAG) IVCONTRAST ONE (20:21)
[2017-06-10] MEDS: ATORVASTATIN 20 MG TAB PO SCH (20:36)
--- NOTE | 2017-06-10 21:21 | RADRPT ---
EXAM DATE/TIME: 06/10/2017 20:18 [facility] COMPARISON: CT ABDOMEN & PELVIS W CONTRAST, June 09, 2017, 9:46. INDICATIONS : Enteritis. IV CONTRAST: 100 cc Omnipaque 350 (iohexol) IV ORAL CONTRAST: No oral contrast ingested. RADIATION DOSE: 16.00 CTDIvol (mGy) MEDICAL HISTORY : Cardiovascular disease. Hypertension. Renal calculi.Bladder cancer. SURGICAL HISTORY : None. ENCOUNTER: Initial ACUITY: 1 day PAIN SCALE: 5/10 LOCATION: Bilateral abdomen TECHNIQUE: Volumetric scanning was performed using a multi-row detector CT scanner. The data was post processed with a variety of visualization algorithms including full volume maximum intensity projection, multi -planar sliding thin slab reformation, curved planar reformation, and surface rendering techniques. Using automated exposure control and adjustment of the mA and/or kV according to patient size, radiat ion dose was kept as low as reasonably achievable to obtain optimal diagnostic quality images. DICOM format image data is available electronically for review and comparison. FINDINGS: ABDOMINAL AORTA: There is diffuse atherosclerotic changes throughout the aorta. No aneurysmal dilatation. No aortic di ssection. The celiac and SMA are patent. There may be some mild narrowing at the origin of the celiac artery. There is no evidence of any stenosis involving the SMA. The JOE is patent. The renal arterie s are patent bilaterally. No high-grade stenosis is seen. BIFURCATION: Atherosclerotic changes are noted involving the bifurcation. No high-grade stenosis. RIGHT PELVIS: The right common iliac, internal iliac and external iliac vessels are patent with atherosclerotic louis nges. No high-grade stenosis.. LEFT PELVIS: The left common iliac, internal iliac and external iliac vessels are patent with atherosclerotic morrow ges. No high-grade stenosis.. CONCLUSION: 1. Diffuse atherosclerotic changes throughout the aorta. 2. The celiac and SMA are patent. There may be some mild narrowing at the origin of the celiac artery . However no high-grade stenosis is seen. The JOE is patent. 3. The renal arteries are patent. 4. Atherosclerotic changes involving the pelvic vessels bilaterally. Brandon Tamez MD on June 10, 2017 at 21:14 Board Certified Radiologist. This report was verified electronically.
[2017-06-11] VITALS: BP 156/63; PULSE 67; RESP 18; TEMP 98.4; O2SAT 94
[2017-06-11] MEDS: PIPERACIL-TAZO 4.5 GM PREMIX 100 ML IV SCH ×2 (02:14→08:23)
[2017-06-11 03:44] LABS: HEMATOCRIT 38.5 % (39.0-51.0); HEMOGLOBIN 13.8 GM/DL (13.0-17.0); MEAN CELL VOLUME 95.2 FL (80.0-100.0); MEAN CORPUSCULAR HEMOGLOBIN 34.1 PG (27.0-34.0); MEAN CORPUSCULAR HGB CONC 35.8 % (32.0-36.0); MEAN PLATELET VOLUME 8.4 FL (7.0-11.0); PLATELET COUNT 194 TH/MM3 (150-450); RED BLOOD COUNT 4.04 MIL/MM3 (4.50-5.90); RED CELL DISTRIBUTION WIDTH 12.7 % (11.6-17.2); WHITE BLOOD COUNT 7.7 TH/MM3 (4.0-11.0)
[2017-06-11 04:00] VITALS: BP 115/56; PULSE 56; RESP 18; TEMP 98.4; O2SAT 98
[2017-06-11 04:10] LABS: BICARBONATE 25.2 MEQ/L (21.0-32.0); CALCIUM 8.1 MG/DL (8.5-10.1); CREATININE 0.73 MG/DL (0.60-1.30)
[2017-06-11] MEDS ORDERED: POTASSIUM CHLORIDE 10 MEQ CONTROLLED RELEASE TAB PO ONE ×3 (07:00→14:00)
[2017-06-11 08:04] VITALS: BP 132/61; PULSE 54; RESP 20; TEMP 97.7; O2SAT 98
[2017-06-11] MEDS: LOSARTAN 50 MG TAB PO SCH (08:19)
[2017-06-11] MEDS: HYDROCHLOROTHIAZIDE 25 MG TAB PO SCH (08:20)
[2017-06-11] MEDS: PANTOPRAZOLE SODIUM 40 MG VIAL IV PUSH SCH (08:20)
[2017-06-11] MEDS: VITAMIN E 400 UNIT CAP PO SCH (08:20)
[2017-06-11] MEDS: SODIUM CHLORIDE 0.9% FLUSH 10 ML FLUSH IV FLUSH SCH (08:22)
[2017-06-11] MEDS: SODIUM CHLOR 0.9% 1000 ML INJ 1,000 ML IV SCH (08:34)
[2017-06-11 10:51] LABS: CHOLESTEROL/ HDL RATIO 3.04 RATIO; HDL CHOLESTEROL 28.9 MG/DL (40.0-60.0)
--- NOTE | 2017-06-11 10:58 | HHI.DCPOC ---
Discharge Care Plan Diagnosis: (1) Partial small bowel obstruction (2) Enteritis Goals to Promote Your Health * To prevent worsening of your condition and complications * To maintain your health at the optimal level Directions to Meet Your Goals Take your medications as prescribed Follow your dietary instruction Follow activity as directed Keep your appointments as scheduled Take your immunizations and boosters as scheduled If your symptoms worsen call your PCP, if no PCP go to Urgent Care Center or Emergency Room Smoking is Dangerous to Your Health. Avoid second hand smoke Call the 24-hour hour crisis hotline for domestic abuse at Jada Schulz MD R1 Jun 11, 2017 10:58
--- NOTE | 2017-06-11 10:58 | HHI.DS ---
Discharge Summary Admission Date Jun 09, 2017 at 10:51 Admitting Diagnosis partial small bowel obstruction, enteritis, dehydration, nausea/vomi (1) Partial small bowel obstruction Plan: -CT with fluid-filled dilated loops of small bowel with partial small bowel obstruction -Lipase 104 -Patient to be nothing by mouth, will consider NG tube with continued nausea/ vomiting -NS at 112 ml/hr -Pain control: -Morphine 4 mg every 3 hours as needed for pain 6-10 -Morphine 2 mg every 3 hours as needed for pain 3-5 -Tylenol as needed every 6 hours -Patient to be NPO before procedure -Zofran when necessary for nausea/vomiting -General surgery consult as patient is postop from exploratory laparotomy and umbilical hernia repair, pressure recommendations -GI consulted as below ICD Codes: K56.600 - Partial intestinal obstruction, unspecified as to cause Status: Acute (2) Hematemesis Plan: Patient with 2 episodes of hematemesis per report -H/H stable trending Q8H -Transfuse for hemoglobin less than 7 as he has no coronary artery disease -BUN 28, Cr 0.99, ratio consistent with possible GI bleed -Protonix twice a day -GI consulted -EGD today ICD Codes: K92.0 - Hematemesis Status: Acute (3) Enterocolitis Plan: Abdominal CT shows focal wall thickening involving the small intestine suggesting enterocolitis -WBC: 17 with 85.8% neutrophils -Lactic acid 1.7 -Blood cultures pending -Patient started on Zosyn for antibacterial coverage ICD Codes: K52.9 - Noninfective gastroenteritis and colitis, unspecified Status: Acute (4) Postoperative pain Plan: -Patient with postoperative abdominal pain from laparoscopy for lysis of adhesions and umbilical hernia repair -Morphine as needed for for pain -General surgery consulted as above ICD Codes: G89.18 - Other acute postprocedural pain Status: Acute (5) Hypertension Plan: -Continue home losartan-HCTZ -Home aspirin held ICD Codes: I10 - Essential (primary) hypertension Status: Chronic (6) Hyperlipidemia Plan: -Continue home statin ICD Codes: E78.5 - Hyperlipidemia, unspecified Status: Chronic (7) Nutrition, metabolism, and development symptoms Plan: -Fluids: Normal saline at maintenance (112 mL/h) -Diet: Nothing by mouth for EGD in a.m. -Electrolytes: Within normal limits, continue to monitor -Prophylaxis: Albuterol when necessary for shortness of breath, Protonix for GERD, clonidine when necessary for blood pressure greater than 180/110, hydroxyzine when necessary for insomnia, Zofran when necessary for nausea, incentive spirometry, Tylenol as needed for fever ICD Codes: R63.8 - Other symptoms and signs concerning food and fluid intake Status: Acute (8) Medical contraindication to deep vein thrombosis (DVT) prophylaxis Plan: -Medical DVT prophylaxis held due to possible upper GI bleed -SCDs ICD Codes: Z53.09 - Procedure and treatment not carried out because of other contraindication Status: Acute Brief History 72-year-old male presenting to the emergency department with abdominal pain/ distention, frequent burping and emesis with questionable hematemesis 2. He was recently hospitalized and underwent surgery for lysis of adhesions and umbilical hernia repair on 06/03/[address] Paredes of general surgery. Procedure reportedly went well with no complications and patient did well postoperatively, however over the last 2-3 days he developed progressive abdominal pain and distention along with nausea and eventually emesis overnight. States that the pain started off as a "gas pain" with frequent belching until he had emesis yesterday evening that was noted to be red (unsure if it was from food or if it was blood, patient did have pizza that had red sauce and strawberries). He had another episode of emesis that was red tinged that was concerning for blood this morning upon awakening at 7 AM. He presents to the emergency department with continued generalized abdominal pain and distention and describes it as diffuse and aching. He denies fevers or chills. He denies melena or hematochezia. He denies chest pain or palpitations. He denies NSAID use. He endorses bowel movements, last one was yesterday and was normal per patient except for being slightly smaller which he attributed to decreased oral intake. He denies bloody or black stools. CBC/BMP: 06/11/17 0310 06/11/17 0310 Significant Findings Laboratory Tests Test 06/09/17 08:40 06/09/17 16:20 06/10/17 00:29 06/10/17 03:50 White Blood Count 17.0 TH/MM3 (4.0-11.0) Neutrophils (%) (Auto) 85.8 % (16.0-70.0) Lymphocytes (%) (Auto) 8.1 % (9.0-44.0) Neutrophils # (Auto) 14.6 TH/MM3 (1.8-7.7) Monocytes # (Auto) 1.0 TH/MM3 (0-0.9) Blood Urea Nitrogen 28 MG/DL (7-18) Random Glucose 134 MG/DL (74-106) Estimat Glomerular Filtration Rate 74 ML/MIN (>89) Troponin I LESS THAN 0.02 NG/ML Hemoglobin 12.9 GM/DL (13.0-17.0) 12.7 GM/DL (13.0-17.0) Hematocrit 36.6 % (39.0-51.0) 35.9 % (39.0-51.0) Red Blood Count 3.72 MIL/MM3 (4.50-5.90) Total Protein 5.0 GM/DL (6.4-8.2) Albumin 2.6 GM/DL (3.4-5.0) Calcium Level 7.8 MG/DL (8.5-10.1) Potassium Level 3.4 MEQ/L (3.5-5.1) Chloride Level 110 MEQ/L (98-107) Test 06/10/17 09:41 06/10/17 19:46 06/11/17 03:10 Hemoglobin 12.9 GM/DL (13.0-17.0) Hematocrit 37.0 % (39.0-51.0) 38.8 % (39.0-51.0) 38.5 % (39.0-51.0) Red Blood Count 4.04 MIL/MM3 (4.50-5.90) Mean Corpuscular Hemoglobin 34.1 PG (27.0-34.0) Random Glucose 57 MG/DL (74-106) Calcium Level 8.1 MG/DL (8.5-10.1) Potassium Level 3.3 MEQ/L (3.5-5.1) Chloride Level 108 MEQ/L (98-107) Cholesterol Level 88 MG/DL (120-200) HDL Cholesterol 28.9 MG/DL (40.0-60.0) PE at Discharge GENERAL: Well-nourished, well-developed male lying in bed in no acute distress. SKIN: Warm and dry. No rash. HEENT: Atraumatic, normocephalic with EOMI. Mucous membranes moist. No rhinorrhea. No visible LAD or JVD appreciated. CARDIOVASCULAR: Regular rate and rhythm without obvious murmurs, gallops, or rubs. RESPIRATORY: Clear to auscultation bilaterally with no crackles, wheezes, or rhonchi. No increased work of breathing. GASTROINTESTINAL: Abdomen soft, nondistended with hypoactive bowel sounds in all 4 quadrants. Patient mildly tender to palpation diffusely without rebound or guarding, improved from prior exam. Negative Guthrie's signs with positive guarding. No rebound tenderness. Multiple port incisions CDI with what appears to be Dermabond on the incision. 4x4 gauze covered with Tegaderm over the periumbilical area, CDI. MUSCULOSKELETAL: No cyanosis or edema. NEURO/PSYCH: Afocal. Awake, alert, and oriented x3. Normal speech and judgement. Jada Schulz MD R1 Jun 11, 2017 10:58
[2017-06-11 12:14] VITALS: BP 124/57; PULSE 65; RESP 20; TEMP 98; O2SAT 93
[2017-06-11] MEDS ORDERED: ATOR40TA16 PO (12:14)
[2017-06-11] MEDS ORDERED: CIPR500T2 PO (12:14)
[2017-06-11] MEDS ORDERED: METR-1 PO (12:14)
--- NOTE | 2017-06-11 12:15 | HHI.FPPN ---
Subjective Remarks No acute events overnight. Pt standing in the doorway this morning, says he's ready to go home. Tolerating diet well and good UOP. BM yesterday and this morning. Pt has no complaints. He denies CP, SOB, abdominal pain, and N/V. (Jada Schulz MD R1) Objective Vitals Vital Signs Date Time Temp Pulse Resp B/P (MAP) Pulse Ox O2 Delivery O2 Flow Rate FiO2 06/11/17 08:04 97.7 54 20 132/61 (84) 98 06/11/17 04:00 98.4 56 18 115/56 (75) 98 06/11/17 00:00 98.4 67 18 156/63 (94) 94 06/10/17 20:00 98.4 78 18 163/71 (101) 99 06/10/17 16:50 98.1 64 20 142/64 (90) 99 06/10/17 15:15 97.7 76 16 149/69 (95) 97 06/10/17 14:56 97.7 65 16 122/68 (86) 97 I/O 06/10/17 06/10/17 06/10/17 06/11/17 06/11/17 06/11/17 07:00 15:00 23:00 07:00 15:00 23:00 Intake Total 500 ml 500 ml 1100 ml Balance 500 ml 500 ml 1100 ml Intake Oral 500 ml 0 ml IV Total 1100 ml Other 500 ml # Voids 0 3 3 # Bowel Movements 0 1 (Jada Schulz MD R1) Result Diagram: 06/11/1730906/11/17309 Objective Remarks GENERAL: Well-nourished, well-developed male, standing and walking around room, in no acute distress. SKIN: Warm and dry. No rash. HEENT: Atraumatic, normocephalic with EOMI. Mucous membranes moist. No rhinorrhea. No visible LAD or JVD appreciated. CARDIOVASCULAR: Regular rate and rhythm without obvious murmurs, gallops, or rubs. RESPIRATORY: Clear to auscultation bilaterally with no crackles, wheezes, or rhonchi. No increased work of breathing. GASTROINTESTINAL: Abdomen soft, NT/ND. No guarding. No rebound tenderness. Multiple port incisions CDI with what appears to be Dermabond on the incision. MUSCULOSKELETAL: No cyanosis or edema. NEURO/PSYCH: Afocal. Awake, alert, and oriented x3. Normal speech and judgement. (Jada Schulz MD R1) A/P Assessment and Plan 72-year-old male presented to the emergency department with partial small bowel obstruction and enteritis associated with hematemesis Discharge Planning Plan to discharge today (Jada Schulz MD R1) Attending Attestation Pt. examined and case discussed with resident physicians. I personally examined patient this morning during rounds separate from the residents. I have read the above note and agree with the assessment and plan as discussed with me. I was involved in all medical decision making for this patient. Brandon Patel MD (Brandon Patel MD) Problem List: (1) Partial small bowel obstruction ICD Codes: K56.600 - Partial intestinal obstruction, unspecified as to cause Status: Acute Plan: -CT with fluid-filled dilated loops of small bowel with partial small bowel obstruction -Lipase 104 -Zofran when necessary for nausea/vomiting -GI consulted and General surgery consulted as below -Pain control: -Morphine 4 mg every 3 hours as needed for pain 6-10 -Morphine 2 mg every 3 hours as needed for pain 3-5 -Tylenol as needed every 6 hours (2) Hematemesis ICD Codes: K92.0 - Hematemesis Status: Acute Plan: Patient with 2 episodes of hematemesis per report -H/H stable trending Q8H -Transfuse for hemoglobin less than 7 as he has no coronary artery disease -BUN 28, Cr 0.99, ratio consistent with possible GI bleed -Protonix twice a day -GI and General surgery consulted, recs appreciated -EGD revealed gastritis -CTA positive for atherosclerotic changes involving the pelvic vessels b/l, Milk narrowing at the origin of the celiac artery, no high-grade stenosis is seen, will increase atorvastatin to from 20mg to 40mg -Follow up outpatient with GI and General surgery (3) Enterocolitis ICD Codes: K52.9 - Noninfective gastroenteritis and colitis, unspecified Status: Acute Plan: Abdominal CT shows focal wall thickening involving the small intestine suggesting enterocolitis -WBC: 17 with 85.8% neutrophils -Lactic acid 1.7 -Blood cultures NGTD -Continue Zosyn 4.5gm IV q6h, patient will be discharge with Cipro 500mg BID & Flagyl 500mg TID for 5 day course (4) Postoperative pain ICD Codes: G89.18 - Other acute postprocedural pain Status: Resolved Plan: -Patient with postoperative abdominal pain from laparoscopy for lysis of adhesions and umbilical hernia repair -Morphine as needed for for pain -General surgery consulted as above (5) Hypokalemia ICD Codes: E87.6 - Hypokalemia Plan: K+ 3.3 today, replaced with 40meq K+ orally Pt reports taking K+ pills at home for chronic hypokalemia Will do recheck BMP 1 week upon discharge (6) Hypertension ICD Codes: I10 - Essential (primary) hypertension Status: Chronic Plan: -Continue home losartan-HCTZ -Home aspirin held (7) Hyperlipidemia ICD Codes: E78.5 - Hyperlipidemia, unspecified Status: Chronic Plan: -Home Atorvastatin increased from 20mg to 40mg (8) Nutrition, metabolism, and development symptoms ICD Codes: R63.8 - Other symptoms and signs concerning food and fluid intake Status: Acute Plan: -Fluids: stop MIVFs -Diet: Regular diet -Electrolytes: Within normal limits, continue to monitor -Prophylaxis: Albuterol when necessary for shortness of breath, Protonix for GERD, clonidine when necessary for blood pressure greater than 180/110, hydroxyzine when necessary for insomnia, Zofran when necessary for nausea, incentive spirometry, Tylenol as needed for fever (9) Medical contraindication to deep vein thrombosis (DVT) prophylaxis ICD Codes: Z53.09 - Procedure and treatment not carried out because of other contraindication Status: Acute Plan: -Medical DVT prophylaxis held due to possible upper GI bleed -SCDs (Jada Schulz MD R1) Problem Qualifiers (1) Hematemesis: Qualified Codes: K92.0 - Hematemesis Jada Schulz MD R1 Jun 11, 2017 12:14 Brandon Patel MD Jun 11, 2017 21:03
== END 2017-06-11 13:34 | disposition home or self-care (01) | DRG 389 ==
LOC: NEPC 07:54 → NEDA 10:51 → N05B 14:43
PROVIDERS: ADMIT Family Medicine; ATTEND Family Medicine
PROC: 0DB78ZX Excision of Stomach, Pylorus, Via Natural or Artificial Opening Endoscopic, Diagnostic (ICD-10-PCS; 2017-06-10)
PROC: 0DB58ZX Excision of Esophagus, Via Natural or Artificial Opening Endoscopic, Diagnostic (ICD-10-PCS; 2017-06-10)
PROC: 0DB98ZX Excision of Duodenum, Via Natural or Artificial Opening Endoscopic, Diagnostic (ICD-10-PCS; principal; 2017-06-10 14:28)
DX: K56.600 Partial intestinal obstruction, unspecified as to cause (principal); K92.0 Hematemesis; E86.0 Dehydration; I10 Essential (primary) hypertension; K52.9 Noninfective gastroenteritis and colitis, unspecified; E78.5 Hyperlipidemia, unspecified; F17.290 Nicotine dependence, other tobacco product, uncomplicated; G89.18 Other acute postprocedural pain; K44.9 Diaphragmatic hernia without obstruction or gangrene; K21.0 Gastro-esophageal reflux disease with esophagitis; E87.6 Hypokalemia; K29.70 Gastritis, unspecified, without bleeding; M19.90 Unspecified osteoarthritis, unspecified site; Z85.51 Personal history of malignant neoplasm of bladder; Z85.828 Personal history of other malignant neoplasm of skin
CPT/HCPCS: 74174; 74177; 80048; 80053; 80061; 82550; 83605; 83690; 84484; 85014; 85018; 85025; 85027; 87040; 88305; 93005; 94150; 96361; 96374; 96375; C9113; J2270; J2405; J2543; J7030; J7120; Q9967

== ENCOUNTER 2017-06-26 14:19 | Inpatient (IN) | payer MEDICARE ==
[~2017-06-26] VITALS: Ht 170.2 cm; Wt 70.0 kg
[~2017-06-26 14:19] MED LIST changes: -ATOR20TA15 PO; +ATOR40TA16 PO; +CIPR500T2 PO; +METR-1 PO
[2017-06-26] MEDS ORDERED: IOHEXOL 350 MG/ML 10 ML VIAL (for RAD DIAG) IVCONTRAST ONE (14:20)
[2017-06-26 14:29] VITALS: BP 154/74; PULSE 94; RESP 15; TEMP 98.3; O2SAT 97
[2017-06-26] MEDS ORDERED: SODIUM CHLOR 0.9% 1000 ML INJ 1,000 ML IV SCH ×2 (14:29→19:00)
[2017-06-26] MEDS ORDERED: MORPHINE SULFATE 4 MG/ML INJ IV PUSH ONE (14:30)
[2017-06-26] MEDS ORDERED: ONDANSETRON HCL 4 MG/2 ML VIAL IVP ONE (14:30)
[2017-06-26 15:26] LABS: AUTOMATED NEUTROPHIL # 14.6 TH/MM3 (1.8-7.7); BASOPHIL % 0.3 % (0.0-2.0); EOSINOPHIL % 0.1 % (0.0-4.0); HEMATOCRIT 45.6 % (39.0-51.0); LYMPH % 4.3 % (9.0-44.0); LYMPHOCYTE # 0.7 TH/MM3 (1.0-4.8); MEAN CELL VOLUME 94.9 FL (80.0-100.0); MEAN CORPUSCULAR HEMOGLOBIN 33.2 PG (27.0-34.0); MEAN PLATELET VOLUME 8.2 FL (7.0-11.0); MONO % 3.9 % (0.0-8.0); MONOCYTE # 0.6 TH/MM3 (0-0.9); NEUT % 91.4 % (16.0-70.0); PLATELET COUNT 272 TH/MM3 (150-450); RED BLOOD COUNT 4.81 MIL/MM3 (4.50-5.90); RED CELL DISTRIBUTION WIDTH 13.1 % (11.6-17.2)
[2017-06-26 15:32] LABS: INTERNATIONAL NORMALIZED RATIO 1.1 RATIO; PROTHROMBIN TIME - PATIENT 10.7 SEC (9.8-11.6)
[2017-06-26 15:41] LABS: ALBUMIN 3.7 GM/DL (3.4-5.0); ALT (GPT) 32 U/L (12-78); AST (GOT) 23 U/L (15-37); BLOOD UREA NITROGEN 24 MG/DL (7-18); CALCIUM 9.2 MG/DL (8.5-10.1); CHLORIDE 103 MEQ/L (98-107); CREATININE 0.85 MG/DL (0.60-1.30); GLOMERULAR FILTRATION RATE 89 ML/MIN (>89); GLUCOSE,RANDOM 129 MG/DL (74-106); SODIUM (NA) 139 MEQ/L (136-145)
--- NOTE | 2017-06-26 15:44 | RADRPT ---
EXAM DATE/TIME: 06/26/2017 15:01 [facility] COMPARISON: No previous studies available for comparison. INDICATIONS : Shortness of breath and upper abdominal pain. MEDICAL HISTORY : Cardiovascular disease. Hypertension. Renal calculi.Bladder cancer SURGICAL HISTORY : umbilical hernia repair ENCOUNTER: Initial ACUITY: 1 day PAIN SCORE: 6/10 LOCATION: Bilateral upper chest FINDINGS: A single view of the chest demonstrates the lungs to be symmetrically aerated without evidence of mas s, infiltrate or effusion. The cardiomediastinal contours are unremarkable. Osseous structures are intact. CONCLUSION: No acute disease. Rk Downing Jr., MD on June 26, 2017 at 15:42 Board Certified Radiologist. This report was verified electronically.
--- NOTE | 2017-06-26 15:45 | RADRPT ---
EXAM DATE/TIME: 06/26/2017 15:25 [facility] COMPARISON: No previous studies available for comparison. INDICATIONS : Abdominal pain for 1 week post umbilical hernia repair MEDICAL HISTORY : Cardiovascular disease. Hypertension. Renal calculi. Bladder cancer. SURGICAL HISTORY : Appendectomy. ENCOUNTER: Initial ACUITY: 1 week PAIN SCORE: 7/10 LOCATION: Umbilical FINDINGS: On the supine view, there is a solitary gas distended loop of small bowel in the right hypogastric re gion measuring 6.0 cm. Mild amount of stool in the right colon. On the erect view, there are severa l air fluid levels seen in the upper abdomen; uncertain whether the air fluid levels or small or larg e bowel. Degenerative changes in the thoracic spine. CONCLUSION: 1. There is at least one distended loop of small bowel measuring up to 6 cm with possible air-fluid l evel. The appearance is nonspecific and could be due to either ileus or obstruction. Rk Sapp MD on June 26, 2017 at 15:42 Board Certified Radiologist. This report was verified electronically.
[2017-06-26 15:51] LABS: ALKALINE PHOSPHATASE 74 U/L (45-117); TOTAL BILIRUBIN ADULT 0.5 MG/DL (0.2-1.0); TOTAL PROTEIN 7.1 GM/DL (6.4-8.2); TROPONIN I LESS THAN 0.02 NG/ML (0.02-0.05)
--- NOTE | 2017-06-26 16:42 | RADRPT ---
EXAM DATE/TIME: 06/26/2017 16:27 [facility] COMPARISON: No previous studies available for comparison. INDICATIONS : Short of breath. IV CONTRAST: 71 cc Omnipaque 350 (iohexol) IV ; Cumulative dose for multiple exams. RADIATION DOSE: 8.09 CTDIvol (mGy) ; Combined studies MEDICAL HISTORY : Cardiovascular disease. Hypertension. Carcinoma, bladder. SURGICAL HISTORY : None. ENCOUNTER: Initial ACUITY: 1 day PAIN SCALE: 5/10 LOCATION: chest TECHNIQUE: Volumetric scanning of the chest was performed using a pulmonary embolism protocol MIP images were re constructed. Using automated exposure control and adjustment of the mA and/or kV according to patien t size, radiation dose was kept as low as reasonably achievable to obtain optimal diagnostic quality images. DICOM format image data is available electronically for review and comparison. Follow-up recommendations for detected pulmonary nodules are based at a minimum on nodule size and pa tient risk factors according to Fleischner Society Guidelines. FINDINGS: PULMONARY ARTERIES: No filling defects are seen in the pulmonary arteries through the segmental level. LUNGS: There is no consolidation or pneumothorax . No concerning pulmonary nodule is visualized. PLEURAE: There is no pleural thickening or pleural effusion. MEDIASTINUM: There is good visualization of the great vessels of the middle mediastinum. No evidence of mediastin al or hilar adenopathy/mass. The dense coronary artery calcifications present. Occasional granulomato us calcifications in right hilar lymph nodes. MUSCULOSKELETAL: Within normal limits for patient age. MISCELLANEOUS: The visualized upper abdominal organs demonstrate no acute abnormality. CONCLUSION: No evidence of pulmonary embolism Maykel Alcraaz MD on June 26, 2017 at 16:39 Board Certified Radiologist. This report was verified electronically.
--- NOTE | 2017-06-26 16:49 | RADRPT ---
EXAM DATE/TIME: 06/26/2017 16:27 This report includes an Addendum and supersedes previous reports for this exam. [facility] COMPARISON: CT ABDOMEN & PELVIS W CONTRAST, June 09, 2017, 9:46. INDICATIONS : Patient complains of abdominal pain. IV CONTRAST: 71 cc Omnipaque 350 (iohexol) IV ; Cumulative dose for multiple exams. ORAL CONTRAST: No oral contrast ingested. RADIATION DOSE: 8.09 CTDIvol (mGy) ; Combined studies MEDICAL HISTORY : Cardiovascular disease. Hypertension. Carcinoma, bladder. SURGICAL HISTORY : hernia repair ENCOUNTER: Initial ACUITY: 1 day PAIN SCALE: 5/10 LOCATION: mid abdomen TECHNIQUE: Volumetric scanning of the abdomen and pelvis was performed. Using automated exposure control and ad justment of the mA and/or kV according to patient size, radiation dose was kept as low as reasonably achievable to obtain optimal diagnostic quality images. DICOM format image data is available electro nically for review and comparison. FINDINGS: Prior CT on 06/09/17 and demonstrated multiple dilated loops of small bowel. On today's examination, t he degree and number of distended small bowel loops has increased with distended loops of bowel measu ring up to 5 cm in thickness. Several air-fluid levels are seen. There are some nondistended distal small bowel loops in the lower abdomen. The transition point between distended in nondistended loop s is located in the right lower quadrant, best seen on axial image #62 and on coronal image #56. The re is a mild amount of free fluid in the dependent pelvis which also extends into the right inguinal hernia. Stool is seen in the right colon. A few sigmoid diverticula without radiographic evidence of diverti culitis. Small hiatus hernia. The liver, gallbladder, spleen, pancreas, kidneys, and adrenal glands are intact. Tiny cortical cysts in both kidneys stable from prior. Atherosclerotic calcification i n nondistended abdominal aorta and iliac vessels stop some calcification in the posterior central zon e of the prostate gland. Urinary bladder margins are smooth. Wide windows for bony detail demonstrate the osseous structures to be intact. Several bone islands i n lower lumbar vertebral bodies and in the medial left iliac bone. No evidence of pneumoperitoneum. CONCLUSION: 1. Increasing small bowel obstruction with transition point in the right lower quadrant. Small bowel loops measure up to 5 cm in diameter and the small bowel loops are predominantly fluid filled. 2. Stable small amount of free fluid in the dependent pelvis. No evidence of pneumoperitoneum. Rk Sapp MD on June 26, 2017 at 16:40 Board Certified Radiologist. This report was verified electronically. ADDENDUM: I have reviewed this case with Dr. Satish Paredes. The patient has [address] examination dated 8 and 06/09/2017. On the earlier CT from 06/09/2017, there are several segments of small bowel that appea r thickened and areas that appear focally narrowed raising the possibility of enteritis and inflammat ory bowel disease. On the later CT dated 06/26/2017, the patient has areas of distal small bowel that are narrowed. Dr. Paredes has performed a laparoscopy on the patient and the patient does not have adhe sions. The patient only other abdominal surgery apparently was a laparoscopic appendectomy. The dilat ed small bowel eventual least 2 areas of thickening or narrowing. Overall, I believe the areas of thi ckening or narrowing represent underlying enteritis/inflammatory bowel disease. Maykel Lorenzana MD on June 28, 2017 at 8:15 Board Certified Radiologist. This report was verified electronically.
[2017-06-26] MEDS ORDERED: CIPROFLOXACIN 200 MG PREMIX 100 ML IV ONE (17:00)
[2017-06-26] MEDS ORDERED: metroNIDAZOLE 500 MG INJ 100 ML IV ONE (17:00)
--- NOTE | 2017-06-26 17:08 | PD ---
HPI Chief Complaint: Abdominal Pain Time Seen by Provider: 14:29 Travel History International Travel<30 days: No Contact w/Intl Traveler<30days: No Traveled to known affect area: No History of Present Illness HPI 72 yo male here for abdominal pain and N/V. Has had this since yesterday. History of recent surgical repair for hernia on June [address] Paredes. Was seen here a week later with SMO. Per patient it feels similar. No BM x 3 days. pain is in epigastric area. Pain 8/10. N/V started last night. No urinary issues. Complains of some chest pain as well. Per ambulance patient was having multiple PVCs and they started him on lidocaine with improvement. No other medical issues. No blood. Saw Dr Paredes last week. No blood in stool or urine. PFSH Past Medical History Heart Rhythm Problems: Yes (PVC) Cancer: Yes (Bladder) Cardiovascular Problems: Yes (HTN) High Cholesterol: Yes Chemotherapy: No Chest Pain: No Congestive Heart Failure: No Diabetes: No Diminished Hearing: No Endocrine: No GERD: No Genitourinary: Yes Hepatitis: No Heparin Induced Thrombocytopen: No Hypertension: Yes Immune Disorder: No Kidney Stones: Yes Musculoskeletal: No Neurologic: No Psychiatric: No Reproductive: No Respiratory: No Immunizations Current: Yes Radiation Therapy: No Renal Failure: No Sickle Cell Disease: No Thyroid Disease: No Ulcer: No Tetanus Vaccination: Unknown Influenza Vaccination: Yes Past Surgical History Abdominal Surgery: Yes (umbilical hernia surgery ) AICD: No Arteriovenous Shunt: No Body Medical Devices: NONE Cardiac Surgery: No Ear Surgery: No Endocrine Surgery: No Eye Surgery: No Genitourinary Surgery: No Gynecologic Surgery: No Insulin Pump: No Joint Replacement: No Oral Surgery: Yes (tonsillectomy) Pacemaker: No Thoracic Surgery: No Tonsillectomy: Yes Other Surgery: Yes (HERNIA ) Social History Alcohol Use: Yes (WINE DAILY) Tobacco Use: No (E-CIG) Substance Use: No Allergies-Medications (Allergen,Severity, Reaction): Coded Allergies: No Known Allergies (Unverified Adverse Reaction, Unknown, 06/26/17) Reported Meds & Prescriptions Reported Meds & Active Scripts Active Atorvastatin (Atorvastatin Calcium) 40 Mg Tab 40 Mg PO HS . Ciprofloxacin (Ciprofloxacin HCl) 500 Mg Tab 500 Mg PO BID . Oxycodone (Oxycodone HCl) 5 Mg Cap 5 Mg PO Q6H PRN Hyzaar (Losartan-Hydrochlorothiazide) 100-25 Mg Tab 1 Tab PO DAILY Tylenol-Codeine #4 (Acetaminophen-Codeine) 300-60 mg Tab 1 Tab PO Q6HR PRN Reported Tyson-E Complete (S-Adenosylmethionine) 200 Mg Tab 200 Mg PO DAILY Vitamin E 100 Unit Tab 100 Units PO DAILY Fish Oil + D3 (Fish Oil-Cholecalciferol) 1,200-1,000 Mg-Unit Cap 1 Cap PO DAILY Aspirin 81 Mg Chew 81 Mg CHEW DAILY Review of Systems Except as stated in HPI: all other systems reviewed are Neg Physical Exam Narrative GENERAL: SKIN: Warm and dry. HEAD: Atraumatic. Normocephalic. EYES: Pupils equal and round. No scleral icterus. No injection or drainage. ENT: No nasal bleeding or discharge. Mucous membranes pink and moist. NECK: Trachea midline. No JVD. CARDIOVASCULAR: Regular rate and rhythm. RESPIRATORY: No accessory muscle use. Clear to auscultation. Breath sounds equal bilaterally. GASTROINTESTINAL: Abdomen soft, Tender to pain in the epigastric area with distension noted, Tender in all other quadrants as well. Hepatic and splenic margins not palpable. Surgical scars appear well with no sign of infection. MUSCULOSKELETAL: Extremities without clubbing, cyanosis, or edema. No obvious deformities. Full ROM of the upper and lower extremities bilaterally. NEUROLOGICAL: Awake and alert. No obvious cranial nerve deficits. Motor grossly within normal limits. Five out of 5 muscle strength in the arms and legs. Normal speech. PSYCHIATRIC: Appropriate mood and affect; insight and judgment normal. Data Data Last Documented VS Vital Signs Date Time Temp Pulse Resp B/P (MAP) Pulse Ox O2 Delivery O2 Flow Rate FiO2 06/26/17 17:28 90 22 126/67 (86) 96 Room Air 06/26/17 14:29 98.3 Orders Orders Electrocardiogram (06/26/17 14:29) Complete Blood Count With Diff (06/26/17 14:29) Comprehensive Metabolic Panel (06/26/17 14:29) Ckmb (Isoenzyme) Profile (06/26/17 14:29) Troponin I (06/26/17 14:29) Prothrombin Time / Inr (Pt) (06/26/17 14:29) Act Partial Throm Time (Ptt) (06/26/17 14:29) Blood Culture (06/26/17 14:29) Lipase (06/26/17 14:29) Urinalysis - C+S If Indicated (06/26/17 14:29) Magnesium (Mg) (06/26/17 14:29) Thyroid Stimulating Hormone (06/26/17 14:29) Chest, Single Ap (06/26/17 14:29) Ct Abd/Pel W Iv Contrast(Rout) (06/26/17 14:29) Iv Access Insert/Monitor (06/26/17 14:29) Ecg Monitoring (06/26/17 14:29) Oximetry (06/26/17 14:29) Lactic Acid (06/26/17 14:29) Morphine Inj (Morphine Inj) (06/26/17 14:30) Ondansetron Inj (Zofran Inj) (06/26/17 14:30) Sodium Chlor 0.9% 1000 Ml Inj (Ns 1000 M (06/26/17 14:29) Ct Pulmonary Angiogram (06/26/17 ) Abdomen, Flat & Upright (06/26/17 ) Iohexol 350 Inj (Omnipaque 350 Inj) (06/26/17 14:20) Insert Ng Tube (06/26/17 16:51) Ciprofloxacin 200 Mg Premix (Cipro 200 M (06/26/17 17:00) Metronidazole 500 Mg Inj (Flagyl 500 Mg (06/26/17 17:00) Admit Order (Ed Use Only) (06/26/17 17:32) Labs Laboratory Tests Test 06/26/17 14:56 06/26/17 17:30 White Blood Count 16.0 TH/MM3 Red Blood Count 4.81 MIL/MM3 Hemoglobin 16.0 GM/DL Hematocrit 45.6 % Mean Corpuscular Volume 94.9 FL Mean Corpuscular Hemoglobin 33.2 PG Mean Corpuscular Hemoglobin Concent 35.0 % Red Cell Distribution Width 13.1 % Platelet Count 272 TH/MM3 Mean Platelet Volume 8.2 FL Neutrophils (%) (Auto) 91.4 % Lymphocytes (%) (Auto) 4.3 % Monocytes (%) (Auto) 3.9 % Eosinophils (%) (Auto) 0.1 % Basophils (%) (Auto) 0.3 % Neutrophils # (Auto) 14.6 TH/MM3 Lymphocytes # (Auto) 0.7 TH/MM3 Monocytes # (Auto) 0.6 TH/MM3 Eosinophils # (Auto) 0.0 TH/MM3 Basophils # (Auto) 0.0 TH/MM3 CBC Comment DIFF FINAL Differential Comment Prothrombin Time 10.7 SEC Prothromb Time International Ratio 1.1 RATIO Activated Partial Thromboplast Time 21.9 SEC Blood Urea Nitrogen 24 MG/DL Creatinine 0.85 MG/DL Random Glucose 129 MG/DL Total Protein 7.1 GM/DL Albumin 3.7 GM/DL Calcium Level 9.2 MG/DL Magnesium Level 2.0 MG/DL Alkaline Phosphatase 74 U/L Aspartate Amino Transf (AST/SGOT) 23 U/L Alanine Aminotransferase (ALT/SGPT) 32 U/L Total Bilirubin 0.5 MG/DL Sodium Level 139 MEQ/L Potassium Level 3.8 MEQ/L Chloride Level 103 MEQ/L Carbon Dioxide Level 30.0 MEQ/L Anion Gap 6 MEQ/L Estimat Glomerular Filtration Rate 89 ML/MIN Lactic Acid Level 1.1 mmol/L Total Creatine Kinase 49 U/L Troponin I LESS THAN 0.02 NG/ML Lipase 161 U/L Thyroid Stimulating Hormone 3rd Gen 0.566 uIU/ML Urine Color YELLOW Urine Turbidity CLEAR Urine pH 7.5 Urine Specific [place] GREATER THAN 1.050 Urine Protein TRACE mg/dL Urine Glucose (UA) NEG mg/dL Urine Ketones TRACE mg/dL Urine Occult Blood NEG Urine Nitrite NEG Urine Bilirubin NEG Urine Urobilinogen LESS THAN 2.0 MG/DL Urine Leukocyte Esterase NEG Urine RBC 3 /hpf Urine WBC 2 /hpf Urine Squamous Epithelial Cells <1 /hpf Urine Mucus FEW /lpf Microscopic Urinalysis Comment CULT NOT INDICATED MDM Medical Decision Making Medical Screen Exam Complete: Yes Emergency Medical Condition: Yes Medical Record Reviewed: Yes Interpretation(s) CBC & BMP Diagram 06/26/17 14:56 Total Protein 7.1, Albumin 3.7, Calcium Level 9.2, Magnesium Level 2.0, Alkaline Phosphatase 74, Aspartate Amino Transf (AST/SGOT) 23, Alanine Aminotransferase (ALT/SGPT) 32, Total Bilirubin 0.5 Last Impressions Chest X-Ray 06/26/17 1429 Signed Impressions: Service Date/Time: Monday, June 26, 2017 15:01 - CONCLUSION: No acute disease. Rk Downing Jr., MD Abdomen X-Ray 06/26/17 0000 Signed Impressions: Service Date/Time: Monday, June 26, 2017 15:25 - CONCLUSION: 1. There is at least one distended loop of small bowel measuring up to 6 cm with possible air-fluid level. The appearance is nonspecific and could be due to either ileus or obstruction. Rk Sapp MD troponin and CKMB negative CT pulm negative Differential Diagnosis Bowel obstruction versus abdominal pain versus PE versus chest pain versus ACS Narrative Course 72-year-old male to presents to the ED for evaluation of abdominal pain. Patient was properly examined and was found to have signs and symptoms concerning for PE versus obstruction. Labs and imaging were ordered. Labs and imaging were consistent with obstruction. Patient will be admitted for this. My attending spoke with Dr. paredes recommends admission to medical and he will consult. Patient was started on NG tube. Started on antibiotics. Residents contacted and they agreed with admission. Patient agrees with this. Diagnosis Primary Impression: Bowel obstruction Qualified Codes: K56.600 - Partial intestinal obstruction, unspecified as to cause Admitting Information Admitting Physician Requests: Admit Duc Abdi Jun 26, 2017 17:08
--- NOTE | 2017-06-26 17:23 | PD ---
Physical Exam Date Seen by Provider: Jun 26, 2017 Time Seen by Provider: 16:00 Narrative 72-year-old male who had recent history of bowel obstruction, presents today with complaints of recurrent bowel obstruction. Patient states that over last 24 hours he has had nausea vomiting and abdominal distention. Patient was admitted on June 02 and had a laparoscopic procedure for adhesions performed by Dr. Satish Paredes. Dr. Satish Paredes states that upon scoping there was no evidence of adhesions or mechanical strictures. He was admitted again several days later. He presents today for the third time with similar symptoms. X-ray shows air-fluid levels suspicious for obstruction versus ileus. CT scan Data Data Last Documented VS Vital Signs Date Time Temp Pulse Resp B/P (MAP) Pulse Ox O2 Delivery O2 Flow Rate FiO2 06/26/17 14:29 98.3 94 15 154/74 (100) 97 Orders Orders Electrocardiogram (06/26/17 14:29) Complete Blood Count With Diff (06/26/17 14:29) Comprehensive Metabolic Panel (06/26/17 14:29) Ckmb (Isoenzyme) Profile (06/26/17 14:29) Troponin I (06/26/17 14:29) Prothrombin Time / Inr (Pt) (06/26/17 14:29) Act Partial Throm Time (Ptt) (06/26/17 14:29) Blood Culture (06/26/17 14:29) Lipase (06/26/17 14:29) Urinalysis - C+S If Indicated (06/26/17 14:29) Magnesium (Mg) (06/26/17 14:29) Thyroid Stimulating Hormone (06/26/17 14:29) Chest, Single Ap (06/26/17 14:29) Ct Abd/Pel W Iv Contrast(Rout) (06/26/17 14:29) Iv Access Insert/Monitor (06/26/17 14:29) Ecg Monitoring (06/26/17 14:29) Oximetry (06/26/17 14:29) Lactic Acid (06/26/17 14:29) Morphine Inj (Morphine Inj) (06/26/17 14:30) Ondansetron Inj (Zofran Inj) (06/26/17 14:30) Sodium Chlor 0.9% 1000 Ml Inj (Ns 1000 M (06/26/17 14:29) Ct Pulmonary Angiogram (06/26/17 ) Abdomen, Flat & Upright (06/26/17 ) Iohexol 350 Inj (Omnipaque 350 Inj) (06/26/17 14:20) Insert Ng Tube (06/26/17 16:51) Ciprofloxacin 200 Mg Premix (Cipro 200 M (06/26/17 17:00) Metronidazole 500 Mg Inj (Flagyl 500 Mg (06/26/17 17:00) Labs Laboratory Tests Test 06/26/17 14:56 White Blood Count 16.0 TH/MM3 Red Blood Count 4.81 MIL/MM3 Hemoglobin 16.0 GM/DL Hematocrit 45.6 % Mean Corpuscular Volume 94.9 FL Mean Corpuscular Hemoglobin 33.2 PG Mean Corpuscular Hemoglobin Concent 35.0 % Red Cell Distribution Width 13.1 % Platelet Count 272 TH/MM3 Mean Platelet Volume 8.2 FL Neutrophils (%) (Auto) 91.4 % Lymphocytes (%) (Auto) 4.3 % Monocytes (%) (Auto) 3.9 % Eosinophils (%) (Auto) 0.1 % Basophils (%) (Auto) 0.3 % Neutrophils # (Auto) 14.6 TH/MM3 Lymphocytes # (Auto) 0.7 TH/MM3 Monocytes # (Auto) 0.6 TH/MM3 Eosinophils # (Auto) 0.0 TH/MM3 Basophils # (Auto) 0.0 TH/MM3 CBC Comment DIFF FINAL Differential Comment Prothrombin Time 10.7 SEC Prothromb Time International Ratio 1.1 RATIO Activated Partial Thromboplast Time 21.9 SEC Blood Urea Nitrogen 24 MG/DL Creatinine 0.85 MG/DL Random Glucose 129 MG/DL Total Protein 7.1 GM/DL Albumin 3.7 GM/DL Calcium Level 9.2 MG/DL Magnesium Level 2.0 MG/DL Alkaline Phosphatase 74 U/L Aspartate Amino Transf (AST/SGOT) 23 U/L Alanine Aminotransferase (ALT/SGPT) 32 U/L Total Bilirubin 0.5 MG/DL Sodium Level 139 MEQ/L Potassium Level 3.8 MEQ/L Chloride Level 103 MEQ/L Carbon Dioxide Level 30.0 MEQ/L Anion Gap 6 MEQ/L Estimat Glomerular Filtration Rate 89 ML/MIN Lactic Acid Level 1.1 mmol/L Total Creatine Kinase 49 U/L Troponin I LESS THAN 0.02 NG/ML Lipase 161 U/L Thyroid Stimulating Hormone 3rd Gen 0.566 uIU/ML [facility] Medical Record Reviewed: Yes Supervised Visit with YASMIN: Yes Narrative Course 72-year-old male presents with nausea vomiting abdominal distention. Patient has a CT that shows a probable mechanical obstruction at the junction of the small bowel and large bowel. The patient's had previous episodes before. I spoke with Dr. Satish Paredes who states that he does not feel this is a surgical obstruction. He thinks that the patient likely has some sort of inflammatory bowel process. The patient will be admitted to the hospital. He has had an NG tube placed. He will be started on ciprofloxacin and Flagyl. Diagnosis Primary Impression: Bowel obstruction Qualified Codes: K56.600 - Partial intestinal obstruction, unspecified as to cause Additional Impression: Nausea & vomiting Admitting Information Admitting Physician Requests: Admit Darryl Austin MD Jun 26, 2017 17:23
[2017-06-26 17:28] VITALS: BP 126/67; PULSE 90; RESP 22; O2SAT 96
[2017-06-26 17:49] LABS: BILIRUBIN, URINE NEG (NEG); BLOOD, URINE NEG (NEG); GLUCOSE,URINE NEG (NEG); KETONE, URINE TRACE mg/dL (NEG); MUCUS URINE FEW /lpf (OCC); NITRITE,URINE NEG (NEG); PH, URINE 7.5 (5.0-8.5); SQUAMOUS EPITHELIAL CELL URINE <1 /hpf (0-5); URINE COLOR YELLOW (YELLW/STRAW); URINE LEUKOCYTE ESTERASE NEG (NEG)
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
[2017-06-26] MEDS ORDERED: SODIUM CHLORIDE 0.9% FLUSH 10 ML FLUSH IV FLUSH PRN (18:00)
[2017-06-26] MEDS ORDERED: LACTULOSE SYRUP 20 GM/30 ML CUP PO PRN (19:30)
[2017-06-26] MEDS ORDERED: NALOXONE HCL 0.4 MG/ML AMP IV PUSH PRN (19:30)
[2017-06-26] MEDS ORDERED: SIMETHICONE SUSP DROPS 40 MG/0.6 ML 30 ML BTL PO PRN (19:30)
[2017-06-26] MEDS ORDERED: ACETAMINOPHEN 650 MG SUPP RECTAL PRN (19:30)
[2017-06-26] MEDS ORDERED: MAGNESIUM HYDROXIDE SUSP 30 ML CUP PO PRN (19:30)
[2017-06-26] MEDS ORDERED: ONDANSETRON HCL 4 MG/2 ML VIAL IV PUSH PRN (19:30)
[2017-06-26] MEDS ORDERED: BISACODYL 10 MG SUPP RECTAL PRN (19:30)
[2017-06-26] MEDS ORDERED: MORPHINE SULFATE 4 MG/ML INJ IV PUSH PRN (19:30)
[2017-06-26 20:00] VITALS: BP 139/70; PULSE 81; RESP 17; TEMP 97.6; O2SAT 97
[2017-06-26] MEDS: D5-1/2 NS + KCL 20 MEQ INJ 1,000 ML IV SCH (21:14)
[2017-06-26] MEDS: PANTOPRAZOLE SODIUM 40 MG VIAL IV PUSH SCH (21:15)
[2017-06-26] MEDS: ATORVASTATIN 40 MG TAB PO SCH (21:15)
[2017-06-26] MEDS: MORPHINE SULFATE 2 MG/ML INJ IV PRN (21:15)
[2017-06-26] MEDS: DOCUSATE SODIUM 50 MG/SENNA 8.6 MG TAB PO SCH (21:15)
[2017-06-26] MEDS: SODIUM CHLORIDE 0.9% FLUSH 10 ML FLUSH IV FLUSH SCH (21:16)
[2017-06-26 21:20] VITALS: O2SAT 96
[2017-06-26] MEDS ORDERED: RESP: ALBUTEROL 2.5 MG/3 ML NEB (PRN) NEB (22:15)
[2017-06-26] MEDS ORDERED: cloNIDine HCL 0.1 MG TAB PO PRN (22:15)
[2017-06-26 22:24] LABS: TROPONIN I LESS THAN 0.02 NG/ML (0.02-0.05)
--- NOTE | 2017-06-26 22:57 | EKG ---
Date Performed: 06/26/2017 Time Performed: 21:16:44 PTAGE: 72 years EKG: Sinus rhythm WITH FREQUENT VENTRICULAR PREMATURE COMPLEXES NONSPECIFIC T-WAVE ABNORMALITY ABNORMAL RHYTHM ECG PREVIOUS TRACING : 06/26/2017 14.42 No significant change from previous tracing noted. DOCTOR: Rigoberto Dixon Interpretating Date/Time 06/26/2017 22:56:48
--- NOTE | 2017-06-26 23:20 | EKG ---
Date Performed: 06/26/2017 Time Performed: 14:42:06 PTAGE: 72 years EKG: Sinus rhythm WITH FREQUENT VENTRICULAR PREMATURE COMPLEXES ARM LEADS REVERSED ABNORMAL RHYTHM ECG PREVIOUS TRACING : 06/09/2017 08.09 Compared to previous tracing, arm lead reversal is now pres ent. DOCTOR: Rigoberto Dixon Interpretating Date/Time 06/26/2017 23:18:24
[2017-06-27] VITALS (7 sets, daily range): BP systolic 93–103; BP diastolic 49–65; PULSE 64–78; RESP 16–18; TEMP 96.9–98.3; O2SAT 93–100
[2017-06-27] MEDS: D5-1/2 NS + KCL 20 MEQ INJ 1,000 ML IV SCH ×4 (00:18→19:51)
[2017-06-27] MEDS: metroNIDAZOLE 500 MG INJ 100 ML IV SCH ×5 (00:19→23:38)
[2017-06-27] MEDS: MORPHINE SULFATE 2 MG/ML INJ IV PRN ×5 (02:17→19:53)
[2017-06-27 04:16] LABS: BASOPHIL % 0.4 % (0.0-2.0); EOSINOPHIL # 0.1 TH/MM3 (0-0.4); EOSINOPHIL % 1.1 % (0.0-4.0); HEMATOCRIT 38.5 % (39.0-51.0); HEMOGLOBIN 13.5 GM/DL (13.0-17.0); LYMPH % 14.2 % (9.0-44.0); LYMPHOCYTE # 1.6 TH/MM3 (1.0-4.8); MEAN CELL VOLUME 95.9 FL (80.0-100.0); MEAN CORPUSCULAR HEMOGLOBIN 33.6 PG (27.0-34.0); MONO % 6.2 % (0.0-8.0); MONOCYTE # 0.7 TH/MM3 (0-0.9); NEUT % 78.1 % (16.0-70.0); PLATELET COUNT 219 TH/MM3 (150-450); RED BLOOD COUNT 4.02 MIL/MM3 (4.50-5.90); RED CELL DISTRIBUTION WIDTH 12.7 % (11.6-17.2); WHITE BLOOD COUNT 11.5 TH/MM3 (4.0-11.0)
[2017-06-27 04:30] LABS: ALBUMIN 2.9 GM/DL (3.4-5.0); ALKALINE PHOSPHATASE 61 U/L (45-117); ALT (GPT) 25 U/L (12-78); AST (GOT) 19 U/L (15-37); BICARBONATE 28.2 MEQ/L (21.0-32.0); BLOOD UREA NITROGEN 19 MG/DL (7-18); CALCIUM 8.2 MG/DL (8.5-10.1); CHLORIDE 105 MEQ/L (98-107); CREATININE 0.67 MG/DL (0.60-1.30); GLOMERULAR FILTRATION RATE 117 ML/MIN (>89); GLUCOSE,RANDOM 127 MG/DL (74-106); SODIUM (NA) 139 MEQ/L (136-145); TOTAL BILIRUBIN ADULT 0.6 MG/DL (0.2-1.0); TOTAL PROTEIN 5.6 GM/DL (6.4-8.2)
[2017-06-27 04:41] LABS: TROPONIN I LESS THAN 0.02 NG/ML (0.02-0.05)
[2017-06-27] MEDS: SENNOSIDES 8.6 MG TAB PO PRN ×2 (05:47→19:58)
[2017-06-27] MEDS: SODIUM CHLORIDE 0.9% FLUSH 10 ML FLUSH IV FLUSH SCH ×2 (09:00→19:55)
[2017-06-27] MEDS: LOSARTAN 50 MG TAB PO SCH (09:00)
[2017-06-27] MEDS: HYDROCHLOROTHIAZIDE 25 MG TAB PO SCH (09:00)
--- NOTE | 2017-06-27 09:54 | HHI.FPPN ---
Subjective Remarks Pt seen and examined this morning. No acute events overnight. Reports continued abdominal pain this morning, but tolerable. Denies any nausea/vomiting. No bowel movement. Denies flatus. Denies any fever/chills, chest pain, SOB, leg pain. (Juan Nickerson MD) Objective Vitals Vital Signs Date Time Temp Pulse Resp B/P (MAP) Pulse Ox O2 Delivery O2 Flow Rate FiO2 06/27/17 08:00 96.9 77 18 100/58 (72) 94 06/27/17 03:30 97.8 66 17 102/63 (76) 96 06/27/17 00:25 98.0 78 17 95/65 (75) 100 06/26/17 21:20 96 21 06/26/17 20:00 97.6 81 17 139/70 (93) 97 06/26/17 19:02 Room Air 06/26/17 19:00 06/26/17 17:28 90 22 126/67 (86) 96 Room Air 06/26/17 14:29 98.3 94 15 154/74 (100) 97 I/O 06/26/17 06/26/17 06/26/17 06/27/17 06/27/17 06/27/17 07:00 15:00 23:00 07:00 15:00 23:00 Intake Total 200 ml 1100 ml Balance 200 ml 1100 ml Intake Oral 0 ml 0 ml IV Total 200 ml 1100 ml # Voids 1 1 # Bowel Movements 0 0 (Juan Nickerson MD) Result Diagram: 06/27/17 0329 06/27/17 0329 Imaging Last Impressions Chest X-Ray 06/26/17 142 Signed Impressions: Service Date/Time: Monday, June 26, 2017 15:01 - CONCLUSION: No acute disease. Rk Downing Jr., MD Abdomen/Pelvis CT 06/26/17 1429 Signed Impressions: Service Date/Time: Monday, June 26, 2017 16:27 - CONCLUSION: 1. Increasing small bowel obstruction with transition point in the right lower quadrant. Small bowel loops measure up to 5 cm in diameter and the small bowel loops are predominantly fluid filled. 2. Stable small amount of free fluid in the dependent pelvis. No evidence of pneumoperitoneum. Rk Sapp MD CT Angiography 06/26/17 0000 Signed Impressions: Service Date/Time: Monday, June 26, 2017 16:27 - CONCLUSION: No evidence of pulmonary embolism Maykel Alcaraz MD Abdomen X-Ray 06/26/17 0000 Signed Impressions: Service Date/Time: Monday, June 26, 2017 15:25 - CONCLUSION: 1. There is at least one distended loop of small bowel measuring up to 6 cm with possible air-fluid level. The appearance is nonspecific and could be due to either ileus or obstruction. Rk Sapp MD Objective Remarks GENERAL: NAD, lying in bed, resting SKIN: Warm and dry. CARDIOVASCULAR: Regular rate and rhythm. RESPIRATORY: No accessory muscle use. Clear to auscultation. Breath sounds equal bilaterally. GASTROINTESTINAL: Abdomen soft, non-tender to palpation. mildly distended. BS+. No rebound tenderness or guarding. MUSCULOSKELETAL: Extremities without clubbing, cyanosis, or edema. No obvious deformities. NEUROLOGICAL: Awake and alert. Normal speech. (Juan Nickerson MD) A/P Assessment and Plan Mr. Palacios is a 72 y/o M presenting with ABD pain secondary to small bowel obstruction. Discharge Planning Pending clinical improvement and surgery evaluation (Juan Nickerson MD) Attending Attestation Patient interviewed Examination performed Casediscussed in detail with resident team Agree with above documentation See Orders (Jd Sinclair MD) Problem List: (1) Small bowel obstruction ICD Codes: K56.609 - Unspecified intestinal obstruction, unspecified as to partial versus complete obstruction Status: Acute Plan: ABD xray: One distended loop of small bowel measuring up to 6 cm with a possible air-fluid level. Appearance is nonspecific and could be secondary to ileus or obstruction. Abdominal CT: Increasing small bowel obstruction with transition point in the right lower quadrant. Small bowel loops measuring up to 5 cm in diameter and the small bowel loops are predominantly fluid-filled. Stable small amount of free fluid in the dependent pelvis. No evidence of pneumoperitoneum. Chest x-ray: Negative CTA for pulmonary embolism negative -Patient to be nothing by mouth except for medications -D5 half-normal saline with KCl at 1.5 maintenance fluids (165 milliliters per hour) -Zofran when necessary for nausea/vomiting -Simethicone for increase gaseous distention -Protonix daily -Constipation protocol in place -Morphine 2 mg when necessary for pain -Patient declines NG tube at this time, but states if he absolutely needs it, will accept it -General Surgery consulted, recommends Ciprofloxacin and Flagyl for antibiotic coverage per ED staff -F/u consult. Appreciate recs (2) Hypertension ICD Codes: I10 - Essential (primary) hypertension Status: Chronic Plan: -Continue home losartan-HCTZ -Home aspirin held (3) Hyperlipidemia ICD Codes: E78.5 - Hyperlipidemia, unspecified Status: Chronic Plan: -Continue atorvastatin (4) Nutrition, metabolism, and development symptoms ICD Codes: R63.8 - Other symptoms and signs concerning food and fluid intake Status: Acute Plan: -Fluids: D5 half-normal saline with KCl at 1.5 maintenance fluids (165 milliliters per hour) -Diet: Nothing by mouth for obstruction -Electrolytes: Within normal limits, continue to monitor -Prophylaxis: Albuterol when necessary for shortness of breath, Protonix for GERD, clonidine when necessary for blood pressure greater than 180/110, hydroxyzine when necessary for insomnia, Zofran when necessary for nausea, incentive spirometry, Tylenol as needed for fever (5) Medical contraindication to deep vein thrombosis (DVT) prophylaxis ICD Codes: Z53.09 - Procedure and treatment not carried out because of other contraindication Status: Acute Plan: -Medical DVT prophylaxis held until full evaluation by GS -SCDs (Juan Nickerson MD) Problem Qualifiers (1) Hypertension: Qualified Codes: I10 - Essential (primary) hypertension (2) Hyperlipidemia: Qualified Codes: E78.5 - Hyperlipidemia, unspecified Juan Nickerson MD Jun 27, 2017 09:54 Jd Sinclair MD Jun 27, 2017 20:22
[2017-06-27] MEDS: PANTOPRAZOLE SODIUM 40 MG VIAL IV PUSH SCH (10:00)
[2017-06-27] MEDS: DOCUSATE SODIUM 50 MG/SENNA 8.6 MG TAB PO SCH ×2 (10:00→19:57)
[2017-06-27] MEDS: CIPROFLOXACIN 400 MG PREMIX 200 ML IV SCH ×2 (10:00→19:51)
--- NOTE | 2017-06-27 11:23 | PD.CONS ---
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 The episodes had lasted only for 2 or 3 hours and would gradually go away on their own. He eventually required evaluation by surgery and on June 03, 2017 underwent diagnostic laparoscopy and repair of an umbilical hernia. Dr. Satish Paredes did the surgery and I discussed the findings with him. Apparently he ran the small bowel from the ileocecal valve to ligament of Treitz and there were no interloop adhesions or obstructing scar tissue. The patient had had a remote history of a laparoscopic appendectomy for perforated appendicitis. There was one the loop of jejunum that Dr. Paredes thought was a little thickened maybe was related to peristalsis but in retrospect may be related to a focal enteritis. The patient did well after the surgery and was discharged but came back to his 5-6 days later with abdominal pain and hematemesis. During that hospital hospitalization he was seen by GI and an upper endoscopy did demonstrate some gastritis and esophagitis. Recommendations were made for continued proton pump inhibitor therapy avoiding nonsteroidal anti-inflammatory drugs and consideration for CT enterography or enteroscopy should the patient's symptoms continue. I am unsure whether the patient had follow-up with GI as an outpatient and he does not indicate that he did. Nevertheless the patient went to see Dr. Chopra recently for a routine follow-up and he was feeling well. At the time he indicates Dr. Chopra told him he thought that maybe he was suffering from an intermittent obstruction. The patient recently began experiencing severe abdominal pain from a sharp stabbing pain to a crampy pain to a dull deep aching discomfort that became associated with emesis. He denies blood in the emesis this time. He was brought to the emergency department where a CT scan did demonstrate dilated loops of small bowel with an apparent transition zone in the right lower quadrant. It is interesting to note that there was a significant amount of stool seen in the cecum and ascending colon and hepatic flexure. He indicates his last normal bowel function was Thursday prior to admission. He has passed a small amount of flatus since he has been in the hospital. The morphine that he has been receiving for pain every 3 hour basis has been helpful. He has not undergone any further x-ray examination since his CT scan and plain x-rays yesterday. He is an adopted person and has no family history to help us understand whether inflammatory bowel disease or runs in his family. He has an additional scar in the epigastric area of his abdomen that he says a cystic structure came up on his skin following his appendectomy he was told or his understanding is that this is associated with his appendicitis and it was excised. On a couple of occasions he has taken a laxative and when the laxative has been effective he had relief of his discomfort. Review of Systems Constitutional: COMPLAINS OF: Change in appetite Gastrointestinal: COMPLAINS OF: Abdominal pain, Constipation, Vomiting, Anorexia Other He has a right kidney stone Past Family Social History Past Medical History He takes Lipitor for high cholesterol Past Surgical History Laparoscopic appendectomy diagnostic laparoscopy repair umbilical hernia. Excision of a "cystic mass" in the midepigastric area. Reported Medications Lipitor Allergies: Coded Allergies: No Known Allergies (Unverified Allergy, Unknown, 06/26/17) Active Ordered Medications Current Medications Medications (Trade) Dose Ordered Sig/Dianne Route Start Time Stop Time Status Last Admin (NS Flush) 2 ml UNSCH PRN IV FLUSH 06/26/17 18:00 (NS Flush) 2 ml BID IV FLUSH 06/26/17 21:00 06/26/17 21:16 (Lipitor) 40 mg HS PO 06/26/17 21:00 06/26/17 21:15 (Cozaar) 100 mg DAILY PO 06/27/17 09:00 (Hydrodiuril) 25 mg DAILY PO 06/27/17 09:00 Potassium Chloride/Dextrose/ Sod Cl 1,000 ml @ 165 mls/hr Q6H4M IV 06/26/17 19:16 06/27/17 10:01 (Zofran Inj) 4 mg Q6H PRN IV PUSH 06/26/17 19:30 06/26/17 21:15 (Tylenol Supp) 650 mg Q4H PRN RECTAL 2/23/18 19:30 (Protonix Inj) 40 mg DAILY IV PUSH 06/26/17 20:00 06/27/17 10:00 (Narcan Inj) 0.4 mg UNSCH PRN IV PUSH 06/26/17 19:30 (Chelita-Colace) 1 tab BID PO 06/26/17 21:00 06/27/17 10:00 (Milk Of Magnesia Liq) 30 ml Q12H PRN PO 06/26/17 19:30 (Senokot) 17.2 mg Q12H PRN PO 06/26/17 19:30 06/27/17 05:47 (Dulcolax Supp) 10 mg DAILY PRN RECTAL 06/26/17 19:30 (Lactulose Liq) 30 ml DAILY PRN PO 06/26/17 19:30 (Simethicone Liq (Drops)) 40 mg QID PRN PO 06/26/17 19:30 Ciprofloxacin/ Dextrose 200 ml @ 200 mls/hr Q12H IV 06/27/17 08:00 06/27/17 10:00 Metronidazole 100 ml @ 100 mls/hr Q6H IV 06/27/17 00:00 06/27/17 05:47 (Morphine Inj) 2 mg Q4H PRN IV 06/26/17 20:15 06/27/17 10:00 (Vistaril) 50 mg HS PRN PO 06/26/17 22:15 (Albuterol Neb) 2.5 mg Q4HR NEB PRN NEB 06/26/17 22:15 (Catapres) 0.1 mg Q6H PRN PO 06/26/17 22:15 Family History He is adopted Social History He is a non-smoker. He drinks about a half a glass of wine a day. He denies hepatitis or HIV risk factors. 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 Physical Exam Vital Signs Vital Signs Date Time Temp Pulse Resp B/P (MAP) Pulse Ox O2 Delivery O2 Flow Rate FiO2 06/27/17 10:05 18 06/27/17 08:00 96.9 77 18 100/58 (72) 94 06/27/17 03:30 97.8 66 17 102/63 (76) 96 06/27/17 00:25 98.0 78 17 95/65 (75) 100 06/26/17 21:20 96 21 06/26/17 20:00 97.6 81 17 139/70 (93) 97 06/26/17 19:02 Room Air 06/26/17 19:00 06/26/17 17:28 90 22 126/67 (86) 96 Room Air 06/26/17 14:29 98.3 94 15 154/74 (100) 97 Physical Exam HEENT demonstrates some male pattern baldness. His pupils are 2-3 and sluggishly reactive to light his sclera are anicteric. His oropharynx is clear. His a few missing teeth. His mucous membranes are moist. There is no oral pharyngeal erythema. His neck is supple without adenopathy he has a midline trachea no jugular venous distention. His lung sounds are clear and equal anteriorly bilaterally his heart sounds are regular without obvious murmur rub or gallop his abdomen is soft and nondistended. His incisions are all well-healed. He has active bowel sounds without high-pitched tinkling. There is no palpable evidence of recurrent umbilical hernia. I cannot palpate a right inguinal hernia. Genital and rectal exams were deferred. His extremities show no cyanosis clubbing or edema. He has equal radial pulses. Neurologically he is awake alert and oriented. He is equal bilateral wind up worker strength and no gross motor or sensory deficit. Laboratory Laboratory Tests Test 06/26/17 14:56 06/26/17 17:30 06/26/17 21:24 06/27/17 03:29 White Blood Count 16.0 11.5 Red Blood Count 4.81 4.02 Hemoglobin 16.0 13.5 Hematocrit 45.6 38.5 Mean Corpuscular Volume 94.9 95.9 Mean Corpuscular Hemoglobin 33.2 33.6 Mean Corpuscular Hemoglobin Concent 35.0 35.0 Red Cell Distribution Width 13.1 12.7 Platelet Count 272 219 Mean Platelet Volume 8.2 8.0 Neutrophils (%) (Auto) 91.4 78.1 Lymphocytes (%) (Auto) 4.3 14.2 Monocytes (%) (Auto) 3.9 6.2 Eosinophils (%) (Auto) 0.1 1.1 Basophils (%) (Auto) 0.3 0.4 Neutrophils # (Auto) 14.6 9.0 Lymphocytes # (Auto) 0.7 1.6 Monocytes # (Auto) 0.6 0.7 Eosinophils # (Auto) 0.0 0.1 Basophils # (Auto) 0.0 0.0 CBC Comment DIFF FINAL DIFF FINAL Differential Comment Prothrombin Time 10.7 Prothromb Time International Ratio 1.1 Activated Partial Thromboplast Time 21.9 Blood Urea Nitrogen 24 19 Creatinine 0.85 0.67 Random Glucose 129 127 Total Protein 7.1 5.6 Albumin 3.7 2.9 Calcium Level 9.2 8.2 Magnesium Level 2.0 Alkaline Phosphatase 74 61 Aspartate Amino Transf (AST/SGOT) 23 19 Alanine Aminotransferase (ALT/SGPT) 32 25 Total Bilirubin 0.5 0.6 Sodium Level 139 139 Potassium Level 3.8 3.6 Chloride Level 103 105 Carbon Dioxide Level 30.0 28.2 Anion Gap 6 6 Estimat Glomerular Filtration Rate 89 117 Lactic Acid Level 1.1 Total Creatine Kinase 49 43 41 Troponin I LESS THAN 0.02 LESS THAN 0.02 LESS THAN 0.02 Lipase 161 Thyroid Stimulating Hormone 3rd Gen 0.566 Urine Color YELLOW Urine Turbidity CLEAR Urine pH 7.5 Urine Specific [place] GREATER THAN 1.050 Urine Protein TRACE Urine Glucose (UA) NEG Urine Ketones TRACE Urine Occult Blood NEG Urine Nitrite NEG Urine Bilirubin NEG Urine Urobilinogen LESS THAN 2.0 Urine Leukocyte Esterase NEG Urine RBC 3 Urine WBC 2 Urine Squamous Epithelial Cells <1 Urine Mucus FEW Microscopic Urinalysis Comment CULT NOT INDICATED Date/Time Source Procedure Growth Status 06/26/17 14:55 Blood Peripheral Aerobic Blood Culture - Preliminary NO GROWTH IN 1 DAY Resulted 06/26/17 14:55 Blood Peripheral Anaerobic Blood Culture - Preliminary NO GROWTH IN 1 DAY Resulted Result Diagram: 06/27/17 0329 06/27/17 0329 Assessment and Plan Assessment and Plan This is a 72-year-old gentleman with multiple episodes of abdominal pain nausea and emesis of unclear etiology. He has a remote history of laparoscopic appendectomy for perforated appendicitis. On June 03, 2017 he underwent diagnostic laparoscopy and the small bowel was run from the ileocecal valve to the ligament of Treitz and no interloop adhesions or significant scar tissue creating an obstruction was identified. At that time he had an umbilical hernia repaired with suture alone. He is on CT scan he does have a dilated loops of small bowel with an apparent transition zone in the right lower quadrant. There is some question in Dr. Paredes's mind that he may have a focal enteritis. I will order a flat and upright x-ray of the abdomen the follow-up of the bowel distention. Clinically he appears better than his CT examination appear to. Dr. Satish Paredes requested a GI evaluation and I will ask Dr. Chuck Fletcher to see the patient and get his opinion. The patient may ultimately benefit from a pill endoscopy if the small bowel distention improves without surgical intervention. Dr. Satish Paredes will be in to see the patient tomorrow. Lei Ibanez MD Jun 27, 2017 11:23
--- NOTE | 2017-06-27 12:50 | EKG ---
Date Performed: 06/27/2017 Time Performed: 02:29:14 PTAGE: 72 years EKG: Sinus rhythm with PVC(s) Inferior T wave changes are nonspecific Abnormal ECG PREVIOUS TRACING : 06/26/2017 21.16 No significant change from previous tracing noted. DOCTOR: Rigoberto Dixon Interpretating Date/Time 06/27/2017 12:48:56
--- NOTE | 2017-06-27 16:39 | RADRPT ---
EXAM DATE/TIME: 06/27/2017 16:20 [facility] COMPARISON: CT ABDOMEN & PELVIS W CONTRAST, June 26, 2017, 16:27. ABDOMEN FLAT & UPRIGHT, June 26, 2017, 15:25. INDICATIONS : Evaluate for obstruction. MEDICAL HISTORY : Cardiovascular disease. Hypertension. Renal calculi. Bladder cancer. SURGICAL HISTORY : Appendectomy. ENCOUNTER: Subsequent ACUITY: 2 weeks PAIN SCORE: 2/10 LOCATION: Abdomen FINDINGS: Supine and upright views of the abdomen demonstrate a few mildly dilated segments of small bowel rosie uring up to 6 mm, similar to the prior examination. There is still air and stool visualized within th e rectum. Upright image demonstrates air-fluid levels within the small bowel. There is no free intrap eritoneal air. Prior CT demonstrated most of the dilated small bowel to be fluid-filled which would b e occult on plain film imaging. CT also demonstrated transition point in the right lower quadrant in the distal ileum. No organomegaly or concerning calcifications are seen. There is moderate to severe atherosclerotic di sease. Surgical clip overlies the right lower quadrant. Lung bases are clear no acute osseous abnorma lity is seen. CONCLUSION: Stable examination of the abdomen with dilated small bowel with air-fluid levels. Prior CT demonstrat ed features indicating some degree of small bowel obstruction with transition point in the right lowe r quadrant in the distal ileum. Maykel Painting MD on June 27, 2017 at 16:34 Board Certified Radiologist. This report was verified electronically.
[2017-06-27] MEDS: ATORVASTATIN 40 MG TAB PO SCH (19:57)
[2017-06-28] MEDS: D5-1/2 NS + KCL 20 MEQ INJ 1,000 ML IV SCH ×2 (00:47→07:40)
[2017-06-28 04:00] VITALS: BP 98/46
[2017-06-28] MEDS: metroNIDAZOLE 500 MG INJ 100 ML IV SCH (05:20)
[2017-06-28 08:00] VITALS: BP 110/70; PULSE 62; RESP 18; TEMP 97.1; O2SAT 98
--- NOTE | 2017-06-28 08:32 | HHI.PR ---
Subjective Subjective Notes feels better, multiple BMs, wants to eat and go home Objective Vitals/I&O Vital Signs Date Time Temp Pulse Resp B/P (MAP) Pulse Ox O2 Delivery O2 Flow Rate FiO2 06/28/17 04:00 98/46 (63) 06/27/17 23:00 98.3 68 16 98 06/27/17 20:43 21 06/26/17 19:02 Room Air Labs Laboratory Tests Test 06/27/17 20:00 Stool C. difficile Toxin (PCR) Stl C. difficile Toxin Epiderm 027 Date/Time Source Procedure Growth Status 06/26/17 14:55 Blood Peripheral Aerobic Blood Culture - Preliminary NO GROWTH IN 1 DAY Resulted 06/26/17 14:55 Blood Peripheral Anaerobic Blood Culture - Preliminary NO GROWTH IN 1 DAY Resulted Abdomen: Non-distended, BS normal A/P Assessment and Plan PSBO secondary to inflammatory strictures (IBSD???) I reviewed his two most recent CT with Dr. Lorenzana. He clearly has edematous inflammed distal small bowel. Based on his multiple episodes in the last 6 months along with his operative findings of essentially zero adhesions I believe he has inflammatory bowel disease. He should be treated with steroids and/or immune modulators. He needs a lower endoscopy with evaluation of terminal ileum and/or pill endoscopy. He needs to FU with GI for further work up and treatment. Unfortunately surgery is only a last resort as these patients have very high complication rates (fistula, recurrent stricture, etc). I would recommend medical management only as he is not obstructed and only gets temporarily obstructed during flare ups. Ok to resume diet and discharge. FU with Dr. Chopra for GI referral. Will defer to medical team and GI for treatment of Chrons/IBD. Consider steroids? Satish Paredes MD Jun 28, 2017 08:32
[2017-06-28] MEDS: CIPROFLOXACIN 400 MG PREMIX 200 ML IV SCH (08:41)
[2017-06-28] MEDS: PANTOPRAZOLE SODIUM 40 MG VIAL IV PUSH SCH (08:42)
[2017-06-28] MEDS: DOCUSATE SODIUM 50 MG/SENNA 8.6 MG TAB PO SCH (08:44)
[2017-06-28] MEDS: SODIUM CHLORIDE 0.9% FLUSH 10 ML FLUSH IV FLUSH SCH (08:50)
[2017-06-28] MEDS: HYDROCHLOROTHIAZIDE 25 MG TAB PO SCH (08:51)
[2017-06-28] MEDS: LOSARTAN 50 MG TAB PO SCH (08:51)
--- NOTE | 2017-06-28 10:11 | HHI.FPPN ---
Subjective Remarks Since seen and examined at bedside this morning. No acute events overnight. Patient states he is doing well. Denies chest pain, shortness of breath, nausea vomiting, and abdominal pain. Patient was seen by Dr. Paredes this morning, states Dr. Paredes that it was okay for him to go home and follow up with GI as outpatient. No other issues. Objective Vitals Vital Signs Date Time Temp Pulse Resp B/P (MAP) Pulse Ox O2 Delivery O2 Flow Rate FiO2 06/28/17 08:00 97.1 62 18 110/70 (83) 98 06/28/17 04:00 98/46 (63) 06/27/17 23:00 98.3 68 16 97/52 (67) 98 06/27/17 20:43 21 06/27/17 20:30 98.2 65 17 103/62 (76) 99 06/27/17 16:00 97.6 78 18 93/49 (64) 93 06/27/17 15:09 18 06/27/17 12:00 97.3 64 18 96/56 (69) 95 I/O 06/27/17 06/27/17 06/27/17 06/28/17 06/28/17 06/28/17 07:00 15:00 23:00 07:00 15:00 23:00 Intake Total 1100 ml 300 ml 200 ml 1030 ml Output Total 650 ml Balance 1100 ml 300 ml 200 ml 380 ml Intake Oral 0 ml 0 ml 0 ml IV Total 1100 ml 300 ml 200 ml 1030 ml Output Urine Total 650 ml # Voids 1 3 # Bowel Movements 0 0 1 Result Diagram: 06/27/17 0329 06/27/17 0329 Imaging Last Impressions Abdomen X-Ray 06/27/17 0000 Signed Impressions: Service Date/Time: Tuesday, June 27, 2017 16:20 - CONCLUSION: Stable examination of the abdomen with dilated small bowel with air-fluid levels. Prior CT demonstrated features indicating some degree of small bowel obstruction with transition point in the right lower quadrant in the distal ileum. Maykel Painting MD Chest X-Ray 06/26/171428 Signed Impressions: Service Date/Time: Monday, June 26, 2017 15:01 - CONCLUSION: No acute disease. Rk Downing Jr., MD Abdomen/Pelvis CT 06/26/17 1429 Signed Impressions: Service Date/Time: Monday, June 26, 2017 16:27 - CONCLUSION: 1. Increasing small bowel obstruction with transition point in the right lower quadrant. Small bowel loops measure up to 5 cm in diameter and the small bowel loops are predominantly fluid filled. 2. Stable small amount of free fluid in the dependent pelvis. No evidence of pneumoperitoneum. Rk Sapp MD CT Angiography 06/26/17 0000 Signed Impressions: Service Date/Time: Monday, June 26, 2017 16:27 - CONCLUSION: No evidence of pulmonary embolism Maykel Alcaraz MD Objective Remarks GENERAL: NAD, lying in bed, resting SKIN: Warm and dry. CARDIOVASCULAR: Normal S1-S2. Regular rate and rhythm. RESPIRATORY: No accessory muscle use. Clear to auscultation. Breath sounds equal bilaterally. GASTROINTESTINAL: Abdomen soft, non-tender to palpation. mildly distended. BS+. No rebound tenderness or guarding. MUSCULOSKELETAL: Extremities without clubbing, cyanosis, or edema. No obvious deformities. NEUROLOGICAL: Awake and alert. Normal speech. A/P Assessment and Plan Mr. Palacios is a 72 y/o M presenting with ABD pain thought to be due to small bowel obstruction. Patient has been evaluated by general surgery, no surgical intervention indicated at this time. Patient has been hemodynamically stable, no abnormal findings on exam. Patient thought to have inflammatory bowel disease causing intermittent in obstruction due to inflammation. Discharge Planning Pending tolerance of diet advancement. Anticipate discharge today. Problem List: (1) Small bowel obstruction ICD Codes: K56.609 - Unspecified intestinal obstruction, unspecified as to partial versus complete obstruction Status: Acute Plan: ABD xray: One distended loop of small bowel measuring up to 6 cm with a possible air-fluid level. Appearance is nonspecific and could be secondary to ileus or obstruction. Abdominal CT: Increasing small bowel obstruction with transition point in the right lower quadrant. Small bowel loops measuring up to 5 cm in diameter and the small bowel loops are predominantly fluid-filled. Stable small amount of free fluid in the dependent pelvis. No evidence of pneumoperitoneum. KUB 06/17: Stable, dilated bowels with air-fluid levels. Chest x-ray: Negative CTA for pulmonary embolism negative -D5 half-normal saline with KCl at 1.5 maintenance fluids (165 milliliters per hour) -Zofran when necessary for nausea/vomiting -Simethicone for increase gaseous distention -Protonix daily -Constipation protocol in place -Morphine 2 mg when necessary for pain -General Surgery consulted, recommends Ciprofloxacin and Flagyl for antibiotic coverage per ED staff -Based on operative findings in the last 6 months of zero adhesions Dr. paredes believes patient has inflammatory bowel disease.Surgery not indicated for patient at this time has patient believed to have only temporary obstructions during flare-ups. -Patient's diet has been advanced to regular diet - Patient to follow as outpatient with PCP and GI referral for further evaluation, GI procedures, and medical management of IBS. Recommends lower endoscopy with evaluation of terminal ileum and/or pill endoscopy. (2) Hypertension ICD Codes: I10 - Essential (primary) hypertension Status: Chronic Plan: -Continue home losartan-HCTZ -Home aspirin held (3) Hyperlipidemia ICD Codes: E78.5 - Hyperlipidemia, unspecified Status: Chronic Plan: -Continue atorvastatin (4) Nutrition, metabolism, and development symptoms ICD Codes: R63.8 - Other symptoms and signs concerning food and fluid intake Status: Acute Plan: -Fluids: D5 half-normal saline with KCl at 1.5 maintenance fluids (165 milliliters per hour) -Diet: Regular -Electrolytes: Within normal limits, continue to monitor -Prophylaxis: Albuterol when necessary for shortness of breath, Protonix for GERD, clonidine when necessary for blood pressure greater than 180/110, hydroxyzine when necessary for insomnia, Zofran when necessary for nausea, incentive spirometry, Tylenol as needed for fever DVT ppx: SCDs Problem Qualifiers (1) Hypertension: Qualified Codes: I10 - Essential (primary) hypertension (2) Hyperlipidemia: 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
[2017-06-28] MEDS ORDERED: CIPR500T2 PO (10:51)
[2017-06-28] MEDS ORDERED: METR1TAB76 PO (10:51)
[2017-06-28] MEDS ORDERED: PRED20 PO (10:51)
[2017-06-28] MEDS ORDERED: LACTPOW68 PO (10:51)
--- NOTE | 2017-06-28 10:53 | HHI.DCPOC ---
Discharge Care Plan Diagnosis: (1) Hypertension (2) Bowel obstruction (3) Inflammatory bowel disease (4) Nausea & vomiting Goals to Promote Your Health * To prevent worsening of your condition and complications * To maintain your health at the optimal level Directions to Meet Your Goals Take your medications as prescribed Follow your dietary instruction Follow activity as directed Keep your appointments as scheduled Take your immunizations and boosters as scheduled If your symptoms worsen call your PCP, if no PCP go to Urgent Care Center or Emergency Room Smoking is Dangerous to Your Health. Avoid second hand smoke Call the 24-hour hour crisis hotline for domestic abuse at Agustín Silva MD, R1 Jun 28, 2017 10:53
[2017-06-28 12:00] VITALS: BP 108/64; PULSE 61; RESP 18; TEMP 97.3; O2SAT 99
--- NOTE | 2017-06-28 12:06 | PD.CONS ---
GI Consult GI Consult Thank you for the consultation, Full GI consult dictated, 2nd opinion. IMP: 1. consitipation 2. focal small bowel enteritis 3. PSBO resolving PLAN: 1. Recommend Miralax 17 gm once per day 2. Outpt follow up 3. Had long discussion with pt. about diffrential dx. and treatment. 4. pt feels well, symptoms resolved, no objection to discharge from GI stand point. It was a pleasure seeing Topper,Satish Castrejon . Thank you for this consult. Entered by: Chuck Irizarry MD Jun 28, 2017 12:06
--- NOTE | 2017-06-28 13:23 | MB ---
cc: DIAMANTE POTTER DATE OF CONSULTATION: 06/28/2017 REASON FOR CONSULTATION: Small bowel enteritis, abdominal pain. Second opinion GI. DATE OF 1945 REFERRING PHYSICIAN: Dr. Lei Ibanez. PRIMARY CARE PHYSICIAN: Wilfredo Chopra MD. HISTORY OF PRESENT ILLNESS: This is a very pleasant 72-year-old gentleman who recently underwent an expiratory laparotomy with lysis of adhesions and umbilical hernia repair on June 03. About 6 or 7 days later he was admitted to the hospital for abdominal discomfort, nausea, vomiting, possible hematemesis and small bowel obstruction. He underwent an EGD with Dr. Saab which was significant for gastritis without any active signs of bleeding. CT angiography was also done showing no clear evidence of stenosis. It did reveal diffuse bowel wall thickening significant for enteritis. He was eventually discharged home. About two weeks later he went to his primary care physician's office who apparently noted he still had abdominal distension, abdominal pain, and suspected there may still be a possible ileus or obstruction, therefore, he was advised to come back to the hospital for further workup and evaluation. The patient admits that he was having issues with constipation and took a Dulcolax caused some soft, even loose bowel movements. He has not had any history of constipation in the past. There is no documented history of inflammatory bowel disease. The patient is adopted, therefore, we do not have a clear family history. Since the admission he has been slowly improving clinically. He has been evaluated by surgery and did not feel that his symptoms of bowel obstruction are not due to any adhesions. His small bowel was evaluated from the terminal ileum to the ligament of Treitz and no clear adhesive bands were noted. Therefore, it was suspected that he may have some regional enteritis which may be suspicious for inflammatory bowel disease. Due to his symptoms, I was consulted for a second opinion to see if any further workup or treatment may be necessary. PAST MEDICAL HISTORY: 1. Dyslipidemia. 2. Hypertension. 3. Distant history of bladder cancer in 1996 with recurrence several years ago. PAST SURGICAL HISTORY: 1. Bladder surgery. 2. Appendectomy. 3. History of squamous cell carcinoma resection. 4. Recent laparoscopic lysis of adhesions and hernia repair. ALLERGIES: NO KNOWN DRUG ALLERGIES. HOME MEDICATIONS: 1. Lipitor. Please see MAR for complete accurate list. FAMILY HISTORY: The patient is adopted, therefore, family history is not available. 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 REVIEW OF SYSTEMS: A 12 point review of systems was obtained by me which is negative and noncontributory, except as mentioned in the HPI. PHYSICAL EXAMINATION VITAL SIGNS: Temperature 97.1, heart rate 62, respirations 18, blood pressure 110/70, O2 sat 98% on room air. GENERAL: Alert, oriented, no acute distress. HEENT: Pupils equal, round and reactive to light. Oral mucosa moist and pink. NECK: Supple, nontender. No carotid bruits noted. RESPIRATORY: Nonlabored breath sounds. CARDIOVASCULAR: Regular rate and rhythm. No murmurs heard. ABDOMEN: Soft, nontender. No rebound appreciated. Bowel sounds present all four quadrants. No periumbilical ecchymosis. Small dressing is noted on the periumbilical region. EXTREMITIES: No edema noted. LYMPH NODES: No lymphadenopathy noted. 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 NEUROLOGIC: Alert, oriented. GENITOURINARY: No CVA angle tenderness noted. LABORATORY DATA: WBC 11.5, hemoglobin 13.5, platelet count 219. Sodium 139, potassium 3.6, chloride 105, BUN 6, creatinine 19, total bili 0.6, AST 19, ALT 25, alk phos 61, coag 1.1. IMPRESSION 1. Partial small-bowel obstruction with the possibility of small bowel enteritis. The differential diagnosis includes inflammatory bowel disease such as Crohn's disease, possibility of enteritis. 2. Constipation. 3. Erosive esophagitis, gastritis. RECOMMENDATIONS I had a long discussion with the patient regarding his current symptoms. We also discussed future workup which includes a colonoscopy and a patency capsule and a video capsule endoscopy to better evaluate his small bowel. Ideally he needs detailed inflammatory bowel disease workup prior to initiating any treatment. After a good bowel movement this morning he actually feels well. His abdominal distension has resolved and actually he is ready for discharge. Therefore, I recommend follow up with me in the office and at that time will get a detailed workup in regards to bowel disease which includes detailed lab work. A colonoscopy with terminal ileal biopsies and a small bowel capsule endoscopy and possibly single balloon enteroscopy with biopsies as needed. If I can accurately diagnose inflammatory bowel disease then I think that he would benefit from products versus immunomodulator therapy. I would not recommend initiating any of this therapy until we have achieved an accurate diagnosis. The patient understands this in detail and he is agreeable and appreciates this consultation. Thank you for allowing us to participate in the care of this patient. I will be happy to see him in the office for continuation of his workup. MD DYAN Kelly/HENRIQUE /12:07 PM /12:44 PM
== END 2017-06-28 13:29 | disposition home or self-care (01) | DRG 390 ==
LOC: NEPE 14:19 → NEDA 17:35 → N06A 18:58
PROVIDERS: ADMIT Family Medicine; ATTEND Family Medicine
DX: K56.600 Partial intestinal obstruction, unspecified as to cause (principal); I10 Essential (primary) hypertension; K58.9 Irritable bowel syndrome, unspecified; I49.3 Ventricular premature depolarization; E78.00 Pure hypercholesterolemia, unspecified; F17.290 Nicotine dependence, other tobacco product, uncomplicated; K29.70 Gastritis, unspecified, without bleeding; K59.00 Constipation, unspecified; K21.9 Gastro-esophageal reflux disease without esophagitis; G47.00 Insomnia, unspecified; Z85.828 Personal history of other malignant neoplasm of skin; Z87.442 Personal history of urinary calculi; Z85.51 Personal history of malignant neoplasm of bladder; Z89.022 Acquired absence of left finger(s)
CPT/HCPCS: 43752; 71045; 71275; 74019; 74177; 80053; 81001; 82550; 83605; 83690; 83735; 84443; 84484; 85025; 85610; 85730; 87040; 87493; 93005; 96361; 96374; 96375; C9113; J0744; J2270; J2405; J3480; J7030; Q9967